=== PATIENT | male | born 1955 | race Caucasian/White ===

== ENCOUNTER → 2022-09-29 11:05 | Outpatient (CLI) | payer OTHER, SELFPAY ==
--- NOTE | ~2022-09-29 | MR_ITS ---
EXAMINATION: MR knee RT wo con DATE: 09/29/2022 12:01 INDICATION: Right knee pain TECHNIQUE: Magnetic resonance imaging (MRI) of the right knee was performed without intravenous contr ast. Sequences included axial PD-weighted FS FSE, coronal PD-weighted FSE and PD-weighted FS FSE, sag ittal PD-weighted FSE, and sagittal T2-weighted FS FSE. COMPARISON: None. FINDINGS: Medial compartment: Vertical tear of the posterior horn of the medial meniscus with mild medial extrusion. Diffuse full-t hickness cartilage loss. Severe osteophytosis. Lateral compartment: Intact meniscus. Mild diffuse cartilage loss. Moderate osteophytosis. Patellofemoral compartment: Full-thickness cartilage loss along the superior aspect of the patella. Moderate osteophytosis. Intac t retinacula. Ligaments and tendons: ACL is chronically torn. PCL, MCL, and LCL are intact. Remaining flexor and extensor tendons are inta ct. Fluid: Moderate volume joint fluid. Small Zhang's cyst. Osseous/other: No suspicious focal or diffuse marrow signal. IMPRESSION: 1. Vertical tear of the posterior horn, medial meniscus, with extrusion. 2. Chronic ACL tear. 3. Tricompartmental osteoarthritis, severe in the medial compartment Reviewed, dictated and finalized at location K. SULFIDE OPERATOR
== END ==
PROVIDERS: PCP Physician Assistant; Visit Provider Physician Assistant
DX: M17.11 Unilateral primary osteoarthritis, right knee (principal); S83.241A Other tear of medial meniscus, current injury, right knee, initial encounter; S83.511A Sprain of anterior cruciate ligament of right knee, initial encounter; X58.XXXA Exposure to other specified factors, initial encounter
CPT/HCPCS: 73721

== ENCOUNTER → 2023-08-31 10:03 | Outpatient (CLI) | payer OTHER, SELFPAY ==
--- NOTE | ~2023-08-31 | XR_ITS ---
EXAMINATION: XR hip LT min 2V INDICATION: Left hip pain, long-term systemic steroid use TECHNIQUE: Two views of the left hip are obtained. COMPARISON: None available FINDINGS: Bone alignment is normal. There is no fracture. There is moderate osteoarthritis of the lef t hip. Phleboliths are noted in the pelvis. IMPRESSION: 1. Mild osteoarthritis of the hip without acute osseous abnormality. Reviewed, dictated and finalized at location F. HEAD MAT ASSEMBLER
== END ==
PROVIDERS: PCP Physician Assistant; Visit Provider Physician Assistant
DX: M06.042 Rheumatoid arthritis without rheumatoid factor, left hand (principal); Z79.52 Long term (current) use of systemic steroids; M16.12 Unilateral primary osteoarthritis, left hip
CPT/HCPCS: 73502

== ENCOUNTER 2024-02-15 14:15 | Emergency (ER) | payer OTHER, SELFPAY ==
[2024-02-15 14:23] VITALS: BP 139/61; PULSE 75; RESP 18; TEMP 36.6; O2SAT 96
--- NOTE | 2024-02-15 15:02 | ED.EAR ---
HPI - Ear Problem General Chief complaint: Ear Stated complaint: Right Earache Time Seen by Provider: 02/15/24 14:54 Source: patient and RN notes reviewed Mode of arrival: ambulatory Limitations: no limitations History of Present Illness HPI Narrative: Patient presents today with a 2 day history of right ear pain that has been worse since last night with decreased hearing. Currently rates his pain 2/10. History of frequent ear infections. Related Data Home Medications Medication Instructions Recorded Confirmed ergocalciferol (vitamin D2) 1,250 02/15/24 mcg (50,000 unit) capsule folic acid 1 mg tablet 02/15/24 lisinopril 20 mg tablet mg 02/15/24 meloxicam 15 mg tablet mg 02/15/24 methotrexate sodium 2.5 mg tablet mg 02/15/24 prednisone 5 mg tablet mg 02/15/24 Allergies Allergy/AdvReac Type Severity Reaction Status Date / Time No Known Allergies Allergy Verified 02/15/24 14:38 Review of Systems Review of Systems: CONSTITUTIONAL: Denies body aches, fever, chills, or sweats. EYES: Denies visual changes, redness, or discharge. ENT: Denies rhinorrhea, congestion, sore throat. + right ear pain CARDIOVASCULAR: Denies chest pain, palpitations, or edema. RESPIRATORY: Denies cough or dyspnea. GASTROINTESTINAL: Denies abdominal pain, nausea, vomiting, or diarrhea. GENITOURINARY: Denies dysuria or hematuria. SKIN: Denies rash, itching, or wounds. MUSCULOSKELETAL: Denies back pain, joint pain, or myalgia. NEUROLOGIC: Denies headache, numbness, tingling, or weakness. PSYCH: Denies depression or anxiety. [facility] Past Medical History Medical History (Updated 02/15/24 @ 15:06 by Kenyatta Walters, [facility], ) COPD (chronic obstructive pulmonary disease) Hypertension Comments At time of signature, I have reviewed and agree with nursing past medical, surgical, social and family history unless otherwise noted. Please see nursing chart for further information. There is no relevant family history pertinent to the presenting complaint Exam Narrative: GENERAL: Well-appearing, well-nourished, and in no acute distress. HEAD: Normocephalic, atraumatic. EYES: EOMI. No redness or drainage. Conjunctivae normal. ENT: Mucous membranes pink and moist. Nares clear. No rhinorrhea. Right middle ear effusion. NECK: Normal AROM. CHEST: No respiratory distress. MUSCULOSKELETAL: No bony tenderness. EXTREMITIES: Normal range of motion. No edema. SKIN: Warm, dry, no rash. Capillary refill normal. Normal skin turgor. NEURO: No focal deficits. Alert and oriented x3. Gait steady. PSYCH: Normal affect. No signs of depression or anxiety. Course Course Level of Care: Express Care Visit Vital Signs Vital signs: Vital Signs Temperature 97.9 F 02/15/24 14:23 Pulse Rate 75 02/15/24 14:23 Respiratory Rate 18 02/15/24 14:23 Blood Pressure 139/61 02/15/24 14:23 Pulse Oximetry 96 02/15/24 14:23 Oxygen Delivery Room Air 02/15/24 14:23 Temperature 97.9 F 02/15/24 14:23 Pulse Rate 75 02/15/24 14:23 Respiratory Rate 18 02/15/24 14:23 Blood Pressure 139/61 02/15/24 14:23 Pulse Oximetry 96 02/15/24 14:23 Oxygen Delivery Room Air 02/15/24 14:23 Reviewed Medical Decision Making MDM Narrative Medical decision making narrative: Patient will be started on short course of cefdinir. Also recommend Flonase and Coricidin HBP. Patient agrees with plan. Anticipatory guidance given. Differential Diagnosis Differential Diagnosis: Otitis media, otitis externa, ruptured TM, serous otitis, cerumen impaction Vital Signs Vital Signs: Vital Signs Temperature 97.9 F 02/15/24 14:23 Pulse Rate 75 02/15/24 14:23 Respiratory Rate 18 02/15/24 14:23 Blood Pressure 139/61 02/15/24 14:23 Pulse Oximetry 96 02/15/24 14:23 Oxygen Delivery Room Air 02/15/24 14:23 Temperature 97.9 F 02/15/24 14:23 Pulse Rate 75 02/15/24 14:23 Respiratory Rate 18 02/15/24 1
== END 2024-02-15 15:14 | disposition home or self-care (01) ==
PROVIDERS: Emergency Provider Nurse Practitioner; PCP Physician Assistant
DX: H65.01 Acute serous otitis media, right ear (principal); J44.9 Chronic obstructive pulmonary disease, unspecified; I10 Essential (primary) hypertension
CPT/HCPCS: 99213; G0463

== ENCOUNTER 2025-05-26 12:32 | Outpatient (CLI) | payer OTHER, SELFPAY ==
--- NOTE | 2025-05-26 13:00 | NEURO_ITS ---
Impression: # Known diabetic complains of increasing numbness of lower extremities. ? 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 EMG exam. Nerve Conduction Studies ?Stim Site NR Peak (ms) P-T Amp (?V) Site1 Site2 Delta-P (ms) Dist (cm) Keegan (m/s) Left Sup Fibular Anti Sensory (Ant Lat Mall)??? NO RESPONSE 14 cm NR 14 cm Ant Lat Mall 16.0 Right Sup Fibular Anti Sensory (Ant Lat Mall) 14 cm ? 3.8 5.7 14 cm Ant Lat Mall 3.8 16.0 42 Left Sural Anti Sensory (Lat Mall)??? NO RESPONSE Calf NR Calf Lat Mall 16.0 Right Sural Anti Sensory (Lat Mall) Calf ? 3.7 6.3 Calf Lat Mall 3.7 16.0 43 ?Stim Site NR Onset (ms) O-P Amp (mV) Site1 Site2 Delta-0 (ms) Dist (cm) Keegan (m/s) Left Peroneal Motor (Vastus Med) Ankle ? 4.3 3.4 Popit Ankle 10.9 40.0 37 Popit ? 15.2 2.4 Right Peroneal Motor (Vastus Med) Ankle ? 4.4 2.3 Popit Ankle 10.1 40.0 40 Popit ? 14.5 2.0 Left Tibial Motor (Abd Barbosa Brev) Ankle ? 5.0 3.8 Knee Ankle 12.0 43.0 36 Knee ? 17.0 1.5 Right Tibial Motor (Abd Barbosa Brev) Ankle ? 4.9 6.2 Knee Ankle 10.9 46.0 42 Knee ? 15.8 2.9 F Wave Studies ?NR F-Lat (ms) L-R F-Lat (ms) Left Peroneal (Mrkrs) (EDB) ? 58.98 0.70 Right Peroneal (Mrkrs) (EDB) ? 58.29 0.70 Left Tibial (Mrkrs) (Abd Hallucis) ? 59.65 0.38 Right Tibial (Mrkrs) (Abd Hallucis) ? 59.28 0.38 Electromyography ?Side Muscle Nerve Root Ins Act Fibs Amp Dur Recrt Comment Right AntTibialis Dp Br Fibular L4-5 Nml Nml Nml >12ms +1 Right Gastroc Tibial S1-2 Nml Nml Nml >12ms +1 Right Fibularis Long Sup Br Fibular L5-S1 Nml Nml Nml >12ms +1 Right Flex Dig Long Tibial L5-S2 Nml Nml Nml >12ms +1 Right Ext Dig Brev Dp Br Fibular L5, S1 Nml Nml Nml >12ms +2 Right QuadratusFem QuadFemoris L4-5, S1 Nml Nml Nml Nml Nml Left AntTibialis Dp Br Fibular L4-5 Nml Nml Nml >12ms +1 Left Gastroc Tibial S1-2 Nml Nml Nml >12ms +1 Left Fibularis Long Sup Br Fibular L5-S1 Nml Nml Nml >12ms +1 Left Flex Dig Long Tibial L5-S2 Nml Nml Nml >12ms +1 Left Ext Dig Brev Dp Br Fibular L5, S1 Nml Nml Nml >12ms +2 Left QuadratusFem QuadFemoris L4-5, S1 Nml Nml Nml Nml Nml
--- OUTSIDE RECORDS SUMMARY | 2025-05-26 13:44 | XMS_ITS | Clinical Summary ---
Author Organization [facility] Address [address] [place] [address] Care Team Providers Care Promotions Executive Name Role Phone Nolberto Allen MD, Dada Robles Primary Care Provider [phone] Allergies Active Allergy Reactions Criticality Noted Date Comments Unclassified Drug Other (See Comments) 09/15/20 21 RA drug caused severe pain Medications lisinopriL (PRINIVIL) 20 mg tablet Take 20 mg by mouth daily. Active folic acid (FOLVITE) 1 mg tablet Take 1 mg by mouth daily. Active predniSONE (DELTASONE) 5 mg tablet Take 10 mg by mouth daily. Active meloxicam (MOBIC) 15 mg tablet Take 15 mg by mouth daily. Active ergocalciferol (VITAMIN D2) 50,000 unit capsule Take 50,000 Units by mouth. Active denosumab (Prolia) 60 mg/mL Syringe Inject 60 mg by subcutaneous injection. Q 6 months Active methotrexate (RHEUMATREX) 2.5 mg Tablet Take 2.5 mg by mouth. Active calcium carbonate/vitam in D3 (CALCIUM 600 + D,3, ORAL) Take by mouth. Activ e cpap medical deviceIndicatio ns:Sleep apnea, unspecified type [facility] for new S10 Auto CPAP @ 5-20 cwp with heated humidifier, climateline tubing; MARÍA ELENA lifetime; please make available on airview 1 Each 10/24/19 22 Active CPAP / BIPAP suppliesIndicat ions:Obstructiv e sleep apnea syndrome [facility] for mask and all related supplies as needed, fit mask to comfort. 1 Each 06/20/20 23 Active Ozempic 0.25 mg or 0.5 mg (2 mg/3 mL) Pen Injector INJECT 0.5 MG SUBCUTANEOUSLY ONE TIME PER WEEK ON SAME DAY OF EACH WEEK 06/23/20 24 Active fluticasone propion-salmete roL (ADVAIR HFA) 230-21 mcg/actuation HFA Aerosol InhalerIndicati ons:Asthma-COPD overlap syndrome (CMS/HCC) Take 2 Puffs by inhalation every 12 hours. 12 Gram 6 09/01/20 24 Active albuterol sulfate HFA 90 mcg/actuation aerosol inhalerIndicati ons:Asthma-COPD overlap syndrome (CMS/HCC) Take 2 Puffs by inhalation every 6 hours as needed for Shortness of Breath. 8.5 Gram 5 09/01/20 24 Active alendronate (FOSAMAX) 70 mg tablet Take 70 mg by mouth every 7 days. 01/30/20 026 Active Active Problems Patient Care Coordination No te Formatting of this note migh t be different from the original. DME:[facility] for CPAP Problem Noted Date Diagnosed Date Postnasal drip 09/01/2024 Chronic cough 07/12/2022 Gastroesophageal reflux disease 07/12/2022 Asthma-COPD overlap syndrome 07/13/2021 Encounter for screening for lung cancer 07/13/20 Cigarette nicotine dependence without complicati on 07/13/2021 CRISTIANE (obstructive sleep apnea) 07/13/2021 Lung nodules 07/13/2021 Tingling Cervical radiculopathy Resolved Problems Problem Noted Date Diagnosed Date Resolved Date Class 1 obesity due to exces s calories without serious comorbidity with body mass index (BMI) of 34.0 to 34.9 in adult 07/13/202106/2024 Encounters Date Type Department Care Team Description 05/11/2025 External Device Data [facility] ABSTRACTION Provider, Abstract 04/07/2025 External Device Data [facility] ABSTRACTION Provider, Abstract 04/06/2025 External Device Data [facility] ABSTRACTION Provider, Abstract 03/09/2025 External Device Data [facility] ABSTRACTION Provider, Abstract 03/02/2025 2:30 PM CDT Office Visit [facility]monology - [facility] [id number] [place] [address] [address] [place] [address] Jazmín Torres NP Asthma-COPD overlap syndrome (CMS/HCC) (Primary Dx); CRISTIANE (obstructive sleep apnea); Chronic cough; Cigarette nicotine dependence without complication; Gastroesophageal reflux disease, unspecified whether esophagitis present from Last 3 Months Family History Medical History Relation Name Comments Breast Cancer Mother COPD Mother Liver Cancer Mother Relation Name Status Comments Father Mother Social History Tobacco Use Types Packs/Day Years Used Date Smoking Tobacco: Every Day Cigarettes 1.5 49 Passive Smoke Exposure: Never Smokeless Tobacco: Never Alcohol Use Standard Drinks/Week Comments Not Currently 0 (1 standard drink = 0.6 oz pur e alcohol) Sex and Gender Information Value Date Recorded Sex Assigned at Not on file Legal Sex Male 11:36 PM CDT Gender Identity Not on file Sexual Orientation Not on file Last Filed Vital Signs Vital Sign Reading Time Taken Comments Blood Pressure 118/72 03/02/2025 2:12 PM CDT Pulse 70 03/02/2025 2:12 PM CDT Temperature 36.6 C (97.9 F) 03/02/2025 2:12 PM CDT Respiratory Rate 16 03/02/2025 2:12 PM CDT Oxygen Saturation 97% 03/02/2025 2:12 PM CDT Inhaled Oxygen Concentration - - Weight 91.3 kg (201 lb 3.2 oz) 03/02/2025 2:12 P M CDT Height 182.9 cm (6') 03/02/2025 2:12 PM CDT Body Mass Index 27.29 03/02/2025 2:12 PM CDT Plan of Treatment Upcoming Encounters Date Type Department Care Team (Late st Contact Info) Description 10/20/2025 10:40 AM SUPERINTENDENT BOARD [employer]ILL Office Visit [facility]ology - [facility] [id number] [address] [place] [id number] [facility] [address] [place] [address] Health Maintenance Due Date Last Done Comments DIABETES ANNUAL FOOT EXAM 12/27/1975 DIABETES ANNUAL RETINAL EXAM 12/27/1975 DIABETES MICROALBUMIN ANNUAL SCREEN 12/27/1975 LDL CHOLESTEROL ANNUAL 12/27/1975 DTAP/TDAP/TD VACCINES (1 - Tdap) 1976 PNEUMOCOCCAL VACCINE 50+ YEA RS (1 of 2 - PCV) 1976 ZOSTER VACCINE (1 of 2) 1976 COLORECTAL SCREENING 2002 Colorectal Cancer Screening 2002 FIT-DNA Q 3 years 2002 FIT/FOBT Q 1 year 2002 Flex Sig/CT Colonography Q 5 years 2002 RSV VACCINE (60+ or ) (1 - Risk 60-74 years 1-dose series) 2017 DIABETES HBA1C Q 6 MONTHS 04/05/20252024, 07/04/2024, 01/03/2024, Additional history exists INFLUENZA VACCINE (#1) 2025 Lung Cancer Screening 10/30/2025 10/30/2024 , 11/01/2023, 06/29/2022 Abdominal Aortic Aneurysm (A AA) Screening Completed 07/22/2024, 10/19/2022 Procedures Procedure Name Priority Date/Time Associated Diagnosis Comments CT LUNG SCREENING (LDCT BASELINE OR ANNUAL) Routine 10/30/2024 9:54 AM SUPERINTENDENT [employer]ARD MILL Cigarette nicotine dependence without complication CT ABDOMEN PELVIS WO CONTRAST Routine 10/19/2022 11:22 AM SUPERINTENDENT BOARD MILL Right sided abdominal pain from Last 3 Months or Most Recently Relevant to Health Maintenance Results * CT LUNG SCREENING (LDCT BASELINE OR ANNUAL) (10/30/2024 9:54 AM SUPERINTENDENT BOARD MILL) Anatomical Region Laterality Modality Chest Computed Tomogra phy 10/30/2024 9:47 AM SUPERINTENDENT BOARD MILL Impressions 11/02/2024 10:22 AM SUPERINTENDENT BOARD MILL IMPRESSION: 1. Lung-RADS Category 2S: Benign. 2. Old granulomatous changes. Mild patchy ground glass opacities in the left lower lobe could be infectious or inflammatory. 3. Aortic and coronary artery calcifications. 4. Thyroid nodules. RECOMMENDATIONS: 1. Continue annual screening with LDCT in 12 months. 2. Follow-up thyroid ultrasound is suggested. DICTATION LOCATION: [address] 11/02/2024 10:[address] LUNG SCREENING (LDCT BASELINE OR ANNUAL) 10/30/2024 9:54 AM INDICATION: Lung cancer screening, >= 74 pack-year smoking history (Age >= 50y). TECHNIQUE: Axial CT images were obtained though the chest without IV contrast using a low-dose technique. Images were also reviewed using CAD software. CTDlvol of 2 mGy and DLP of 78.71 mGy-cm. The examination was performed with the adjustment of mA according to the patient size and/or the use of Iterative reconstruction technique. LIMITATIONS: Low-dose, noncontrast technique limits evaluation of the solid viscera and mediastinum. COMPARISON: CT lung screening 11/01/2023. FINDINGS: LUNGS: Multiple scattered calcified granulomas. There are a few noncalcified pulmonary nodules identified as follows: 1. Left lower lobe on image 460 of series 8 measuring 3 mm, which is felt to be stable. 2. Left lower lobe on image 428 of series 8 measuring 2 mm which might be new from the prior study. 3. Left upper lobe on image 325 averaging 2.5 mm which is probably stable allowing for slice thickness differences between studies. 4. Image 370 within the left lower lobe measuring 3 mm which is felt to be stable. Mild patchy groundglass opacities within the left lower lobe which may be infectious or inflammatory. Mild secretions within the lumen of the trachea and right main bronchus. No acute airspace consolidation. Focus of pleural thickening in the left upper lobe posteriorly appears stable, image 141 of series 8. PLEURA: No pleural effusion or pneumothorax. HEART/VESSELS: Normal heart size. No pericardial effusion. Mild thoracic aortic calcifications without aneurysm. CORONARY ARTERIES: Multivessel coronary artery calcifications. MEDIASTINUM AND JORGE: Calcified mediastinal lymph nodes. No lymphadenopathy within the mediastinum. CHEST WALL AND LOWER NECK: Multiple calcifications scattered throughout the thyroid gland with a thyroid nodule particularly noted in the inferior pole on the left measuring up to 1.4 cm. UPPER ABDOMEN: Upper abdominal images are degraded by beam hardening artifacts from the low dose technique, without obvious acute process. BONES: Multilevel degenerative changes throughout the spine. Several old left rib fractures. Procedure Note Luis Boo, DO - 11/02/2024 CT LUNG SCREENING (LDCT BASELINE OR ANNUAL) 10/30/2024 9:54 AM INDICATION: Lung cancer screening, >= 74 pack-year smoking history (Age >= 50y). TECHNIQUE: Axial CT images were obtained though the chest without IV contrast using a low-dose technique. Images were also reviewed using CAD software. CTDlvol of 2 mGy and DLP of 78.71 mGy-cm. The examination was performed with the adjustment of mA according to the patient size and/or the use of Iterative reconstruction technique. LIMITATIONS: Low-dose, noncontrast technique limits evaluation of the solid viscera and mediastinum. COMPARISON: CT lung screening 11/01/2023. FINDINGS: LUNGS: Multiple scattered calcified granulomas. There are a few noncalcified pulmonary nodules identified as follows: 1. Left lower lobe on image 460 of series 8 measuring 3 mm, which is felt to be stable. 2. Left lower lobe on image 428 of series 8 measuring 2 mm which might be new from the prior study. 3. Left upper lobe on image 325 averaging 2.5 mm which is probably stable allowing for slice thickness differences between studies. 4. Image 370 within the left lower lobe measuring 3 mm which is felt to be stable. Mild patchy groundglass opacities within the left lower lobe which may be infectious or inflammatory. Mild secretions within the lumen of the trachea and right main bronchus. No acute airspace consolidation. Focus of pleural thickening in the left upper lobe posteriorly appears stable, image 141 of series 8. PLEURA: No pleural effusion or pneumothorax. HEART/VESSELS: Normal heart size. No pericardial effusion. Mild thoracic aortic calcifications without aneurysm. CORONARY ARTERIES: Multivessel coronary artery calcifications. MEDIASTINUM AND JORGE: Calcified mediastinal lymph nodes. No lymphadenopathy within the mediastinum. CHEST WALL AND LOWER NECK: Multiple calcifications scattered throughout the thyroid gland with a thyroid nodule particularly noted in the inferior pole on the left measuring up to 1.4 cm. UPPER ABDOMEN: Upper abdominal images are degraded by beam hardening artifacts from the low dose technique, without obvious acute process. BONES: Multilevel degenerative changes throughout the spine. Several old left rib fractures. IMPRESSION: 1. Lung-RADS Category 2S: Benign. 2. Old granulomatous changes. Mild patchy ground glass opacities in the left lower lobe could be infectious or inflammatory. 3. Aortic and coronary artery calcifications. 4. Thyroid nodules. RECOMMENDATIONS: 1. Continue annual screening with LDCT in 12 months. 2. Follow-up thyroid ultrasound is suggested. DICTATION LOCATION: Location [address] [place] [address] [place] Jazmín Torres NP CT ORDERABLES Final Res ult * CT ABDOMEN PELVIS WO CONTRAST (10/19/2022 11:22 AM [employer]END[employer]) Anatomical Region Laterality Modality Abdomen Computed Tomogra phy 10/19/2022 11:2 3 AM [employer]ENDENT [employer] Impressions 10/19/2022 11:41 AM [employer]PER[employer]ENDENT [employer] IMPRESSION: 1. No bowel wall thickening or dilation. Normal appendix. 2. No CT correlate for patient's abdominal pain. 3. Additional findings include simple right renal cyst, atherosclerosis and lumbar spondylosis. DICTATION LOCATION: Location [address] [place] [address] 10/19/2022 11:[address] [address] ABDOMEN AND PELVIS WITHOUT IV CONTRAST DATE: 10/19/2022 11:22 AM HISTORY: Right-sided pain. TECHNIQUE: Transaxial computed tomographic images of the abdomen and pelvis were obtained without administration of intravenous contrast according to standard protocol. The examination was performed with the adjustment of mA according to the patient size and/or the use of Iterative Reconstruction Technique. FINDINGS: The lung bases are clear. The heart size is normal. The liver, gallbladder, pancreas, spleen, and adrenal glands are normal. There is a simple right renal cyst present measuring 1.5 cm. There is no calculus or hydronephrosis. The ureters can be followed to the bladder without obstruction. No bowel wall thickening or dilation present. The appendix is air-filled and normal. Atherosclerosis present aorta. No adenopathy present. The bladder is normal. There is no free fluid. There is mild degenerative change in the lower lumbar spine. Procedure Note Maximo Wing MD - 10/19/2022 CT ABDOMEN AND PELVIS WITHOUT IV CONTRAST DATE: 10/19/2022 11:22 AM HISTORY: Right-sided pain. TECHNIQUE: Transaxial computed tomographic images of the abdomen and pelvis were obtained without administration of intravenous contrast according to standard protocol. The examination was performed with the adjustment of mA according to the patient size and/or the use of Iterative Reconstruction Technique. FINDINGS: The lung bases are clear. The heart size is normal. The liver, gallbladder, pancreas, spleen, and adrenal glands are normal. There is a simple right renal cyst present measuring 1.5 cm. There is no calculus or hydronephrosis. The ureters can be followed to the bladder without obstruction. No bowel wall thickening or dilation present. The appendix is air-filled and normal. Atherosclerosis present aorta. No adenopathy present. The bladder is normal. There is no free fluid. There is mild degenerative change in the lower lumbar spine. IMPRESSION: 1. No bowel wall thickening or dilation. Normal appendix. 2. No CT correlate for patient's abdominal pain. 3. Additional findings include simple right renal cyst, atherosclerosis and lumbar spondylosis. DICTATION LOCATION: Location [address] [place] [address] us Dada Arvizu Jr., MD CT ORDERABLES Final Res ult from Last 3 Months or Most Recently Relevant to Health Maintenance Insurance [facility] MCR Care Teams Promotions Executive Relationship Specialty Start [place] [id number] [address] [facility] [address] [place] [address] PCP - General Family Practice 09/26/18
--- OUTSIDE RECORDS SUMMARY | 2025-05-26 13:44 | XMS_ITS | Clinical Summary ---
Author Organization [facility] Address [address] [place] [address] Care Team Providers Care Benzene Worker Name Role Phone Dada Arvizu MD Primary Care Provider [phone] Allergies Active Allergy Reactions Criticality Noted Date Comments Azathioprine Other (see comment) High 04/29/2020 Reaction: back pain, Clonazepam Hives 09/06/2016 Leflunomide Diarrhea High 04/29/2020 Reaction: diarrhea, Sulfasalazine Hives 06/01/2015 Medications albuterol sulfate HFA 108 (90 Base) MCG/ACT inhaler Inhale 2 puffs into the lungs every 6 (six) hours as needed for Wheezing. 18 g 2 Active denosumab (PROLIA) 60 MG/ML injection Inject 1 mL (60 mg total) into the skin. Active folic acid (FOLVITE) 1 MG tablet Take 1 tablet (1 mg total) by mouth daily. 7 Active TRELEGY ELLIPTA 200-62.5-25 MCG/ACT AEROSOL POWDER, BREATH ACTIVATED Inhale 1 puff into the lungs daily. 4 Active vitamin D2, ergocalciferol, (DRISDOL) 1.25 mg capsule Take 1 capsule (1.25 mg total) by mouth once a week. 4 Active lisinopril (PRINIVIL) 20 MG tablet Take 1 tablet (20 mg total) by mouth daily. Active meloxicam (MOBIC) 15 MG tablet Take 1 tablet (15 mg total) by mouth daily. 7 Active methotrexate (TREXALL) 2.5 MG tablet TAKE 8 TABLETS BY MOUTH ALL AT ONCE WEEKLY 7 Active predniSONE (DELTASONE) 5 mg tablet Take 2 tablets (10 mg total) by mouth daily. 6 Active dicyclomine (BENTYL) 20 MG tablet Take 1 tablet (20 mg total) by mouth every 6 (six) hours. 20 tablet 4 Active HYDROcodone-acetami nophen (NORCO) 5-325 MG tabletIndications:A cute Pain < 7 Day Supply Take 1 tablet by mouth every 6 (six) hours as needed. Indications: Acute Pain < 7 Day Supply 10 tablet 4 Active ondansetron (ZOFRAN-ODT) 4 MG disintegrating tablet Take 1 tablet (4 mg total) by mouth every 8 (eight) hours as needed for Nausea. 20 tablet 4 Active Active Problems Problem Noted Date Diagnosed Date Impacted cerumen of right ear 04/29/2020 Social History Tobacco Use Types Packs/Day Years Used Date Smoking Tobacco: Never Passive Smoke Exposure: Never Smokeless Tobacco: Never Tobacco Cessation:Counseling Given: Not Answered Sex and Gender Information Value Date Recorded Sex Assigned at Not on file Legal Sex Male 8:07 PM CDT Gender Identity Not on file Sexual Orientation Not on file Last Filed Vital Signs Vital Sign Reading Time Taken Comments Blood Pressure 135/73 07/22/2024 2:00 PM CDT Pulse 72 07/22/2024 2:00 PM CDT Temperature 36.3 C (97.4 F) 07/22/2024 2:25 PM CDT Respiratory Rate 19 07/22/2024 2:00 PM CDT Oxygen Saturation 95% 07/22/2024 2:00 PM CDT Inhaled Oxygen Concentration - - Weight 94.1 kg (207 lb 7.3 oz) 07/22/2024 11:53 AM CDT Height 182.9 cm (6') 07/22/2024 11:53 AM CDT Body Mass Index 28.14 07/22/2024 11:53 AM CDT Plan of Treatment Health Maintenance Due Date Last Done Comments Colorectal Cancer Screening Colonoscopy (10 Years) 1955 Hepatitis C 12/27/1975 DTaP, Tdap and Td Vaccines ( 1 - Tdap) 1976 Pneumococcal Vaccine: 50+ Years (1 of 1 - PCV) 12/27/2007 Zoster Vaccines (1 of 2) 12/27/2007 Annual Medicare Wellness Visit 2022 COVID-19 Vaccine (3 - 2024-2 6 season) 2025 08/18/2021, 07/21/2021 RSV Immunization or 60+ Years (1 - 1-dose 75+ series) 2032 Meningococcal B Vaccine Aged Out No l onger eligible based on patient's age to complete this topic Meningococcal Vaccine Aged Out No collette denise eligible based on patient's age to complete this topic RSV Immunizations Under 20 Months Aged Out No longer eligible b ased on patient's age to complete this topic Insurance [employer] Care Teams Benzene Worker Relationship Specialty [place] [address] [place] [id number] PCP - General FAMILY PRACTICE 04/29/20
--- OUTSIDE RECORDS SUMMARY | 2025-05-26 13:45 | XMS_ITS | Clinical Summary ---
Author Organization [facility] [address] Address [address] [place] [address] Phone Care Team Providers [employer] Name Role Phone Nolberto Allen MD, Dada Grajeda Primary Care Provid er Ciara Quinones MD Unavailable [phone] Jesus Ernst MD Unavailable [phone] Allergies Active Allergy Reactions Criticality Noted Date Comments Azathioprine Other (See comments) High Reaction: back pain, Clonazepam Hives Medium 09/06/2016 Leflunomide Diarrhea High Reaction: diarrhea, Sulfasalazine Hives Medium 06/01/2015 Medications luliconazole (LUZU) 1 % cream apply by topical route every day as a thin layer to the affected area(s) plus a 1 inch margin of healthy surrounding skin 0 0 6 Active econazole (ECOZA) 1 % foam apply by topical route every day for 4 weeks to affected area(s) 0 0 6 Active lisinopril (PRINIVIL,ZESTR IL) 20 mg tablet take 1 tablet by oral route every day 0 0 6 Active clotrimazole 1 % cream Apply topically 2 (two) times a day. Active clotrimazole-be tamethasone (LOTRISONE) cream APPLY EXTERNALLY TO THE AFFECTED AREA TWICE DAILY 30 g 8 Active diclofenac sodium (PENNSAID) 20 mg/gram /actuation(2 %) solution in metered-dose pump Apply 40 mg topically 2 (two) times a day. Apply to R knee 112 g 2 8 Active cyclobenzaprine (FLEXERIL) 10 mg tablet Take 10 mg by mouth 3 (three) times a day as needed for muscle spasms Active varenicline (CHANTIX) 0.5 mg tabletIndicatio ns:Smoking Cessation Take 0.5 mg by mouth 2 (two) times a day Take with full glass of water. Active PROAIR HFA 90 mcg/actuation inhaler 0 Active Trelegy Ellipta 200-62.5-25 mcg inhaler 2 Active nystatin 100,000 unit/mL suspension Take 5 mL (500,000 Units total) by mouth 4 (four) times a day Swish and swallow 60 mL 1 2 Active buPROPion SR (ZYBAN) 150 mg 12 hr tablet Take 150 mg by mouth 2 (two) times a day Active pantoprazole DR (PROTONIX) 40 mg EC tablet Take 40 mg by mouth daily 2 Active tocilizumab (ACTEMRA) 200 mg/10 mL (20 mg/mL) solution Infuse into a venous catheter Active meloxicam (MOBIC) 15 mg tablet Take 1 tablet (15 mg total) by mouth daily 90 tablet 1 5 Active alendronate (FOSAMAX) 70 mg tablet Take 1 tablet (70 mg total) by mouth every 7 days Take on an empty stomach. Do not lie down or eat for 1/2 hour after taking. 4 tablet 11 5 01/30/20 26 Active ergocalciferol (VITAMIN D) 50,000 unit capsule TAKE 1 CAPSULE BY MOUTH ONE TIME PER WEEK 12 capsule 5 Active predniSONE (DELTASONE) 5 mg tablet TAKE 2 TABLETS BY MOUTH EVERY DAY 60 tablet 1 5 Active folic acid (FOLVITE) 1 mg tabletIndicatio ns:Rheumatoid arthritis involving both hands with negative rheumatoid factor (HCC) TAKE 1 TABLET BY MOUTH EVERY DAY 90 tablet 1 5 Active methotrexate 2.5 mg tabletIndicatio ns:Rheumatoid Arthritis TAKE 8 TABLETS BY MOUTH ALL AT ONCE WEEKLY 96 tablet 5 Active Active Problems Problem Noted Date Diagnosed Date DM2 (diabetes mellitus, type 2) 01/29/2025 Neuropathy involving both lower extremities 05/2025 Assessment & Plan (01/29/2025 3:12 PM CDT): As developed neuropathic pains in the bilateral legs/feet intermittently over the past several months. Has had poorly controlled diabetes, so I do have concerns for diabetic peripheral neuropathy. He does have a history of lower back pain, which may contribute, as well. Denies any lower back pain at present. Will check bilateral lower extremity EMG/NCV. Will check hemoglobin A1c today. longterm systemic steroid user 07/26/2023 Assessment & Plan (07/26/2023 12:28 PM CDT): Given long-term steroid requirements and left hip pain, will obtain left hip x- ray to ensure no AVN. Lower abdominal pain 06/15/2022 Assessment & Plan (06/15/2022 4:06 PM CDT): Has some discomfort over the abdomen, which is much improved over the past few days and attributed to his significant cough from COVID. Minimal tenderness without guarding over the right upper/lower quadrant, although discomfort seems more superficial. Suspect more likely a muscle strain. He has been advised to go to the ER if symptoms worsen Thrush 06/15/2022 Assessment & Plan (07/30/2022 10:55 AM AIRPLANE PATROL PILOT): Previous thrush symptoms have resolved with nystatin swish and swallow Assessment & Plan (06/15/2022 4:07 PM CDT): Will prescribe nystatin swish and swallow. He is to notify us if symptoms persist. Muscle pain 10/14/2020 Assessment & Plan (10/14/2020 5:28 PM AIRPLANE PATROL PILOT): Suspect muscle complaints may be secondary to cramping, which may be exacerbated from his steroid use. Will check muscle enzymes today. Numbness and tingling in right hand 09/09/2020 Assessment & Plan (01/13/2021 5:07 PM CDT): Notes occasional numbness and tingling of the right hand 1-2 digits. Recent EMG 12/2020 was unrevealing Assessment & Plan (10/14/2020 5:29 PM AIRPLANE PATROL PILOT): Numbness and tingling in the R hand, 1-2 digits primarily. EMG ordered at last visit is still pending. Assessment & Plan (09/09/2020 2:52 PM AIRPLANE PATROL PILOT): Numbness and tingling in the R hand, 1-2 digits primarily. Will obtain EMG. Osteoarthritis of carpometac arpal (CMC) joint of right thumb 09/09/2020 Assessment & Plan (09/09/2020 4:50 PM AIRPLANE PATROL PILOT): Significant pain in the right CMC joint suspicious for osteoarthritis. Discussed right CMC injection. Will consider if symptoms persist at next visit. Dark stools 03/04/2020 Assessment & Plan (03/04/2020 3:44 PM CDT): Denies hematochezia, melena. Recommended discussing further with PCP. Ensure UTD on colonoscopy. Chronic right shoulder pain 01/22/2020 Assessment & Plan (01/22/2020 3:57 PM CDT): Pain with R shoulder abduction. Suspect rotator cuff etiology. Will refer to PT. Consider MRI/xray if persists. Pain of right hip joint 01/22/2020 Assessment & Plan (01/22/2020 3:56 PM CDT): Pain in the R hip/lower back, which is exacerbated with resisted hip flexion. Will refer to PT. If no improvement, obtain x-ray/MRI for further evaluation. Chronic right-sided low back pain 01/22/2020 Assessment & Plan (01/22/2020 3:57 PM CDT): Send to PT. Consider imaging for further evaluation if persists. Abnormal urinalysis 01/16/2019 Assessment & Plan (03/06/2019 4:15 PM CDT): No blood seen on most recent UA 02/2019 Assessment & Plan (01/16/2019 4:37 PM CDT): Trace blood on UA in ER. Will recheck today Right knee pain 04/09/2018 Overview (05/08/2018): Saw ortho since last visit. Discussed need for TKA due to OA. Ordered MRI at last visit. Assessment & Plan (10/26/2022 11:21 AM AIRPLANE PATROL PILOT): Has chronic right knee pain and swelling with history of full-thickness right medial posterior meniscal tear on prior MRI. Has previously been to physical therapy. Knee orthopedics has recommended TKA, which he has deferred to this point. Recommended follow-up with knee orthopedics, if symptoms persist. Assessment & Plan (07/30/2022 10:55 AM AIRPLANE PATROL PILOT): Has chronic right knee pain and swelling with history of full-thickness right medial posterior meniscal tear on prior MRI. Another medical provider had recommended a right knee intra-articular Monovisc injection. With that said, they had advised him that he must obtain a repeated knee MRI prior to this. Has previously been to physical therapy. Otherwise, will continue Pennsaid applied to the affected knees and hands up to 2 times daily p.r.n.. Given order for repeat the MRI at prior visit. Has yet to schedule although anticipates doing so, which was discussed again today. Assessment & Plan (06/15/2022 4:04 PM CDT): Has chronic right knee pain and swelling with history of full-thickness right medial posterior meniscal tear on prior MRI. Another medical provider had recommended a right knee intra-articular Monovisc injection. With that said, they had advised him that he must obtain a repeated knee MRI prior to this. Has previously been to physical therapy. Otherwise, will continue Pennsaid applied to the affected knees and hands up to 2 times daily p.r.n.. Given order for repeat the MRI at prior visit. Has yet to schedule although anticipates doing so. Assessment & Plan (03/16/2022 3:00 PM CDT): Has chronic right knee pain and swelling with history of full-thickness right medial posterior meniscal tear on prior MRI. Another medical provider had recommended a right knee intra-articular Monovisc injection. With that said, they had advised him that he must obtain a repeated knee MRI prior to this. Has previously been to physical therapy. Otherwise, will continue Pennsaid applied to the affected knees and hands up to 2 times daily p.r.n.. Given order for repeat the MRI at last visit, did not proceed with as symptoms resolved with Kenalog IM injection. Could reconsider MRI if symptoms recur. Assessment & Plan (02/16/2022 4:17 PM CDT): Has chronic right knee pain and swelling with history of full-thickness right medial posterior meniscal tear on prior MRI. Another medical provider had recommended a right knee intra-articular Monovisc injection. With that said, they had advised him that he must obtain a repeated knee MRI prior to this. Has previously been to physical therapy. Will obtain updated knee MRI. Otherwise, will continue Pennsaid applied to the affected knees and hands up to 2 times daily p.r.n.. Assessment & Plan (01/16/2019 4:36 PM CDT): Full-thickness right medial posterior meniscal tear on the prior MRI. Likely a combination of meniscal tear along with RA contributing to his symptoms. Patient has deferred surgical intervention in the past. Will continue Pennsaid applied to the affected joints of the knees and hands 2 times daily p.r.n.. Assessment & Plan (12/19/2018 4:25 PM CDT): Full-thickness right medial posterior meniscal tear on prior MRI. Likely a combination of meniscal tear along with RA contributing to his symptoms. Defers surgical intervention at this time. Continue Pennsaid applied to the affected joints of the knees and hands 2 times daily p.r.n.. Assessment & Plan (09/12/2018 3:37 PM AIRPLANE PATROL PILOT): Right knee pain continues to be patient's biggest complaint. Had recent MRI which displayed full-thickness tear of his right medial posterior meniscus. Patient will be seeing orthopedics in the near future. Continue pennsaid applied to the affected joints of the knees and hands 2 times daily prn. Assessment & Plan (07/11/2018 4:25 PM CDT): Right knee pain continues to be patient's biggest complaint. Had recent MRI which displayed full-thickness tear of his right medial posterior meniscus. Patient was advised to hold methotrexate and Humira at least 2 weeks prior to surgery, as well as 2-4 weeks post surgery until stitches out and fully healed. Patient also given Pennsaid samples to be applied to the affected joints of the right knee up to 2 times daily p.r.n.. Discussed potential side effects. Will send in prescription at this time. Osteoporosis 04/09/2018 Overview (11/15/2020): Osteopenia: frax 16, 4.4 DEXA 11/11/2020: L-spine:-1.1, left femoral neck:-2.8, right femoral neck: -2.7 left total femur: -2.6 right total femur: -2.4 FRAX: 19.8/9.3 Assessment & Plan (01/29/2025 3:11 PM CDT): DEXA 11/11/2020: L-spine:-1.1, left femoral neck:-2.8, right femoral neck: -2.7 left total femur: -2.6 right total femur: -2.4 FRAX: 19.8/9.3 Previously on Actonel. Remains on vitamin-D 87525 units weekly in combination with calcium 600 mg b.i.d.. Last vitamin-D 07/2024 was 75. Last prolia 08/2024.. Defers continuing with prolia due to high out of pocket costs. Will obtain repeat dexa and check vitamin d levels today. Will begin fosamax 70 mg po weekly. Instructions on Fosamax use and side effects - particularly esophageal adverse events - are carefully reviewed with him. This drug must be taken upon arising for the day on an empty stomach, with a large 6-8 ounce glass of water; he must remain NPO in the upright position for at least 30 minutes afterwards and until after the first food of the day. If esophageal irritation is noted, he will stop the drug and call my office. Assessment & Plan (11/26/2024 3:22 PM AIRPLANE PATROL PILOT): DEXA 11/11/2020: L-spine:-1.1, left femoral neck:-2.8, right femoral neck: -2.7 left total femur: -2.6 right total femur: -2.4 FRAX: 19.8/9.3 Previously on Actonel. Remains on vitamin-D 25142 units weekly in combination with calcium 600 mg b.i.d.. Last vitamin-D 07/2024 was 75. Received Prolia in the office today. Consider repeat DEXA at next visit. He would like to defer Prolia injections in the future due to high [id number] cost. Will consider alternative treatment options at next visit, such as Fosamax. Assessment & Plan (08/28/2024 3:16 PM AIRPLANE PATROL PILOT): DEXA 11/11/2020: L-spine:-1.1, left femoral neck:-2.8, right femoral neck: -2.7 left total femur: -2.6 right total femur: -2.4 FRAX: 19.8/9.3 Previously on Actonel. Remains on vitamin-D 28394 units weekly in combination with calcium 600 mg b.i.d.. Last vitamin-D 07/2024 was 75. Received Prolia in the office today. Consider repeat DEXA at next visit. Assessment & Plan (06/04/2024 2:42 PM CDT): DEXA 11/11/2020: L-spine:-1.1, left femoral neck:-2.8, right femoral neck: -2.7 left total femur: -2.6 right total femur: -2.4 FRAX: 19.8/9.3 Previously on Actonel. Remains on vitamin-D 00718 units weekly in combination with calcium 600 mg b.i.d.. Last vitamin D3/03/2024 was 71. Last Prolia 05/03/2023. Missed last Prolia dose due to back abscess, which is now resolved. Remains several months overdue for infusion. Assessment & Plan (02/28/2024 2:56 PM CDT): DEXA 11/11/2020: L-spine:-1.1, left femoral neck:-2.8, right femoral neck: -2.7 left total femur: -2.6 right total femur: -2.4 FRAX: 19.8/9.3 Previously on Actonel. Remains on vitamin-D 16222 units weekly in combination with calcium 600 mg b.i.d.. Last vitamin D3/03/2024 was 71. Last Prolia 05/03/2023. Missed last Prolia dose due to back abscess, which is now resolved. Will schedule next prolia. Assessment & Plan (11/15/2023 2:43 PM AIRPLANE PATROL PILOT): DEXA 11/11/2020: L-spine:-1.1, left femoral neck:-2.8, right femoral neck: -2.7 left total femur: -2.6 right total femur: -2.4 FRAX: 19.8/9.3 Previously on Actonel. Remains on vitamin-D 81243 units weekly in combination with calcium 600 mg b.i.d.. Vitamin-D 04/12/2023 55. Last Prolia 05/03/2023 Assessment & Plan (07/26/2023 12:28 PM CDT): DEXA 11/11/2020: L-spine:-1.1, left femoral neck:-2.8, right femoral neck: -2.7 left total femur: -2.6 right total femur: -2.4 FRAX: 19.8/9.3 Previously on Actonel. Remains on vitamin-D 07814 units weekly in combination with calcium 600 mg b.i.d.. Vitamin-D 04/12/2023 55. Last Prolia 05/03/2023 Assessment & Plan (04/19/2023 9:57 AM CDT): DEXA 11/11/2020: L-spine:-1.1, left femoral neck:-2.8, right femoral neck: -2.7 left total femur: -2.6 right total femur: -2.4 FRAX: 19.8/9.3 Previously on Actonel. Remains on vitamin-D 23117 units weekly in combination with calcium 600 mg b.i.d.. Vitamin-D 04/12/2023 55. Last Prolia 10/05/2022 Assessment & Plan (03/01/2023 11:00 AM CDT): DEXA 11/11/2020: L-spine:-1.1, left femoral neck:-2.8, right femoral neck: -2.7 left total femur: -2.6 right total femur: -2.4 FRAX: 19.8/9.3 Previously on Actonel. Remains on vitamin-D 35571 units weekly in combination with calcium 600 mg b.i.d.. Last vitamin-D 08/2022 was 50. Last Prolia 10/05/2022. Will recheck vitamin-D and schedule next Prolia. Assessment & Plan (11/30/2022 12:32 PM AIRPLANE PATROL PILOT): DEXA 11/11/2020: L-spine:-1.1, left femoral neck:-2.8, right femoral neck: -2.7 left total femur: -2.6 right total femur: -2.4 FRAX: 19.8/9.3 Previously on Actonel. Remains on vitamin-D 00672 units weekly in combination with calcium 600 mg b.i.d.. Last vitamin-D 08/2022 was 50. Last Prolia 10/05/2022. Assessment & Plan (10/26/2022 10:14 AM AIRPLANE PATROL PILOT): DEXA 11/11/2020: L-spine:-1.1, left femoral neck:-2.8, right femoral neck: -2.7 left total femur: -2.6 right total femur: -2.4 FRAX: 19.8/9.3 Previously on Actonel. Remains on vitamin-D 63995 units weekly in combination with calcium 600 mg b.i.d.. Last vitamin-D 08/2022 was 50. Last Prolia 10/05/2022. Assessment & Plan (07/30/2022 10:55 AM AIRPLANE PATROL PILOT): DEXA 11/11/2020: L-spine:-1.1, left femoral neck:-2.8, right femoral neck: -2.7 left total femur: -2.6 right total femur: -2.4 FRAX: 19.8/9.3 Previously on Actonel. Remains on vitamin-D 33264 units weekly in combination with calcium 600 mg b.i.d.. Last vitamin-D 02/2022 was 48. Last Prolia 03/16/2022. Due for prolia next month, will recheck vit d. Assessment & Plan (06/15/2022 3:48 PM CDT): DEXA 11/11/2020: L-spine:-1.1, left femoral neck:-2.8, right femoral neck: -2.7 left total femur: -2.6 right total femur: -2.4 FRAX: 19.8/9.3 Previously on Actonel. Remains on vitamin-D 41952 units weekly in combination with calcium 600 mg b.i.d.. Last vitamin-D 02/2022 was 48. Last Prolia 03/16/2022 Assessment & Plan (03/16/2022 2:59 PM CDT): DEXA 11/11/2020: L-spine:-1.1, left femoral neck:-2.8, right femoral neck: -2.7 left total femur: -2.6 right total femur: -2.4 FRAX: 19.8/9.3 Previously on Actonel. Remains on vitamin-D 59431 units weekly in combination with calcium 600 mg b.i.d.. Last vit d 02/2022 was 48. [place] prolia 08/2021. Scheduled for prolia after appt today. Assessment & Plan (02/16/2022 4:14 PM CDT): DEXA 11/11/2020: L-spine:-1.1, left femoral neck:-2.8, right femoral neck: -2.7 left total femur: -2.6 right total femur: -2.4 FRAX: 19.8/9.3 Previously on Actonel. Remains on vitamin-D 68759 units weekly in combination with calcium 600 mg b.i.d.. [place] prolia 08/2021. Will recheck vitamin-D and schedule next Prolia. Assessment & Plan (11/10/2021 2:42 PM AIRPLANE PATROL PILOT): DEXA 11/11/2020: L-spine:-1.1, left femoral neck:-2.8, right femoral neck: -2.7 left total femur: -2.6 right total femur: -2.4 FRAX: 19.8/9.3 Previously on Actonel. Remains on vitamin-D 25220 units weekly in combination with calcium 600 mg b.i.d.. [place] prolia 08/2021 Assessment & Plan (09/29/2021 3:15 PM AIRPLANE PATROL PILOT): DEXA 11/11/2020: L-spine:-1.1, left femoral neck:-2.8, right femoral neck: -2.7 left total femur: -2.6 right total femur: -2.4 FRAX: 19.8/9.3 Previously on Actonel. Remains on vitamin-D 52315 units weekly in combination with calcium 600 mg b.i.d.. [place] prolia 08/2021 Assessment & Plan (06/23/2021 3:06 PM CDT): DEXA 11/11/2020: L-spine:-1.1, left femoral neck:-2.8, right femoral neck: -2.7 left total femur: -2.6 right total femur: -2.4 FRAX: 19.8/9.3 Most recent labs 01/2021: Vitamin-D 61 Previously on Actonel. Remains on vitamin-D 80236 units weekly in combination with calcium 600 mg b.i.d.. [place] prolia 02/24/2021 Assessment & Plan (05/19/2021 1:45 PM CDT): DEXA 11/11/2020: L-spine:-1.1, left femoral neck:-2.8, right femoral neck: -2.7 left total femur: -2.6 right total femur: -2.4 FRAX: 19.8/9.3 Most recent labs 01/2021: Vitamin-D 61 Previously on Actonel. Remains on vitamin-D 06614 units weekly in combination with calcium 600 mg b.i.d.. [place] prolia 02/24/2021 Assessment & Plan (02/16/2021 1:51 PM CDT): DEXA 11/11/2020: L-spine:-1.1, left femoral neck:-2.8, right femoral neck: -2.7 left total femur: -2.6 right total femur: -2.4 FRAX: 19.8/9.3 Most recent labs 01/2021: Vitamin-D 61 Previously on Actonel. Remains on vitamin-D 82163 units weekly in combination with calcium 600 mg b.i.d.. Proceed with approval for Prolia Q 6 month subcutaneous injections. Discussed potential side effects. Assessment & Plan (01/13/2021 5:04 PM CDT): DEXA 11/11/2020: L-spine:-1.1, left femoral neck:-2.8, right femoral neck: -2.7 left total femur: -2.6 right total femur: -2.4 FRAX: 19.8/9.3 Most recent labs 09/2020: Vitamin-D 11 He was started on vitamin-D 94996 units weekly in combination with calcium 600 mg b.i.d.. Given his osteoporosis, will stop Actonel at this time and begin approval for Prolia Q 6 months injections. Discussed potential side effects of the medication including but not limited to infections, jaw osteonecrosis. Assessment & Plan (10/14/2020 5:30 PM AIRPLANE PATROL PILOT): Osteopenia on DXA 03/2018, as well as on long-term steroids. Will continue Actonel 150 mg Q 30 days. Recommended vit d 2000 international units today. Will check vitamin d level. Dexa still pending. Assessment & Plan (09/09/2020 2:53 PM AIRPLANE PATROL PILOT): Osteopenia on DXA 03/2018, as well as on long-term steroids. Will continue Actonel 150 mg Q 30 days. Continue calcium and vitamin-D supplementation. Given new orders to recheck DEXA Assessment & Plan (07/15/2020 3:31 PM CDT): Osteopenia on DXA 03/2018, as well as on long-term steroids. Will continue Actonel 150 mg Q 30 days. Recheck in 2 years. Continue calcium and vitamin-D supplementation. Recheck dexa at next visit. Assessment & Plan (06/03/2020 3:27 PM CDT): Osteopenia on DXA 03/2018, as well as on long-term steroids. Will continue Actonel 150 mg Q 30 days. Recheck in 2 years. Continue calcium and vitamin-D supplementation. Recheck dexa at next visit. Assessment & Plan (03/04/2020 3:42 PM CDT): Osteopenia on DXA 03/2018, as well as on long-term steroids. Will continue Actonel 150 mg Q 30 days. Recheck in 2 years. Continue calcium and vitamin-D supplementation. Assessment & Plan (01/22/2020 3:55 PM CDT): Osteopenia on DXA 03/2018, as well as on long-term steroids. Will continue Actonel 150 mg Q 30 days. Recheck in 2 years. Continue calcium and vitamin-D supplementation. Assessment & Plan (11/06/2019 3:32 PM AIRPLANE PATROL PILOT): Osteopenia on DXA 03/2018, as well as on long-term steroids. Will continue Actonel 150 mg Q 30 days. Recheck in 2 years. Continue calcium and vitamin-D supplementation. Assessment & Plan (08/07/2019 3:18 PM AIRPLANE PATROL PILOT): Osteopenia on DXA 03/2018, as well as on long-term steroids. Will continue Actonel 150 mg Q 30 days. Recheck in 2 years. Continue calcium and vitamin-D supplementation. Assessment & Plan (06/26/2019 4:06 PM CDT): Osteopenia on DXA 03/2018, as well as on long-term steroids. Will continue Actonel 150 mg Q 30 days. Recheck in 2 years. Continue calcium and vitamin-D supplementation. Assessment & Plan (05/01/2019 4:51 PM CDT): Osteopenia on DXA 03/2018, as well as on long-term steroids. Will continue Actonel 150 mg Q 30 days. Recheck in 2 years. Continue calcium and vitamin-D supplementation. Assessment & Plan (03/06/2019 4:14 PM CDT): Osteopenia on DXA 03/2018, as well as on long-term steroids. Will continue Actonel 150 mg Q 30 days. Recheck in 2 years. Continue calcium and vitamin-D supplementation. Assessment & Plan (01/16/2019 4:35 PM CDT): Osteopenia on DXA 03/2018, as well as on long-term steroids. Will continue Actonel 150 mg Q 30 days. Recheck in 2 years. Continue calcium and vitamin-D supplementation. Assessment & Plan (12/19/2018 4:24 PM CDT): Osteopenia on DXA 03/2018, as well as on long-term steroids. Will continue Actonel 150 mg Q 30 days. Recheck in 2 years. Continue calcium and vitamin-D supplementation. Assessment & Plan (09/12/2018 3:37 PM AIRPLANE PATROL PILOT): Osteopenia on recent DEXA scan 03/2018, as well as on long-term steroids. On Actonel 150 mg q 30 days. will recheck in 2 years. Assessment & Plan (07/11/2018 4:26 PM CDT): Osteopenia on recent DEXA scan 03/2018, as well as on long-term steroids. On Actonel 150 mg q.d. 30 days. will recheck in 2 years. Assessment & Plan (05/09/2018 3:09 PM CDT): Osteopenia on recent DEXA scan. FRAX score of major osteoporotic fracture 16 with hip fracture 4.4. Will continue with Fosamax Q 7 days. Given handout discussing the medication further. Discussed potential side effects of medication with patient. Assessment & Plan (04/09/2018 6:09 PM CDT): Begin fosamax 70 mg weekly. Discussed the potential side effects of the medication including but not limited to rash, avascular necrosis, and/or GI upset. 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 Dermatitis 10/21/2017 Assessment & Plan (11/26/2017 4:[address] AIRPLANE PATROL PILOT): Had some rashes present before he started humira that were cultured and diagnosed as fungal. His current rash did not improve with holding humira and in fact has worsened. F/u with derm. 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 Questioning a possible psoriatic rash vs tinea versicolor. Will refill the clotrimazole-betamethasone today but will hold this next month's of humira injections to see if it will go away. F/u 1 month. If better with holding injections, can retry humira again to see if it returns as that is how we can tell if it is related to the humira. Pain in both knees 06/14/2017 Overview (10/02/2022): Mild OA on xrays Labs 09/29/2022: ALT 52, total protein 6.3 borderline low, but otherwise normal right knee R knee MRI 09/29/2022: Vertical tear of the posterior horn, medial meniscus, with extrusion. Chronic ACL tear. 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 Chronic ACL tear. 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 He continues to defer surgical intervention. Notes chronic pain in the bilateral knees worsened with use. More likely degenerative arthritis. Continues to defer PT. Defers follow up with Orthopedics. Assessment & Plan (11/26/2024 3:22 PM AIRPLANE PATROL PILOT): Mild OA on xrays Labs 09/29/2022: ALT 52, total protein 6.3 borderline low, but otherwise normal right knee R knee MRI 09/29/2022: Vertical tear of the posterior horn, medial meniscus, with extrusion. Chronic ACL tear. 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 He continues to defer surgical intervention. Notes chronic pain in the bilateral knees worsened with use. More likely degenerative arthritis. Defers PT at this time. Defers follow up with Orthopedics. Assessment & Plan (08/28/2024 3:16 PM AIRPLANE PATROL PILOT): Mild OA on xrays Labs 09/29/2022: ALT 52, total protein 6.3 borderline low, but otherwise normal right knee R knee MRI 09/29/2022: Vertical tear of the posterior horn, medial meniscus, with extrusion. Chronic ACL tear. 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 He continues to defer surgical intervention. Notes chronic pain in the bilateral knees worsened with use. More likely degenerative arthritis, which was discussed today. Will obtain imaging. Defers PT at this time. Defers follow up with Orthopedics. Assessment & Plan (06/04/2024 2:42 PM CDT): Mild OA on xrays Labs 09/29/2022: ALT 52, total protein 6.3 borderline low, but otherwise normal right knee R knee MRI 09/29/2022: Vertical tear of the posterior horn, medial meniscus, with extrusion. Chronic ACL tear. 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 He deferred at that time. Notes chronic pain in the bilateral knees worsened with use. More likely degenerative arthritis, which was discussed today. Will obtain imaging. Defers PT at this time. Defers follow up with Orthopedics. Assessment & Plan (05/09/2018 3:08 PM CDT): Patient notes much improvement since last visit. Continues to have significant pain in the right knee, although notes that is much more tolerable. Has seen Orthopedics since last visit, which is noted to have significant osteoarthritis requiring surgical intervention. Patient defers this at this time and would like right knee MRI for further evaluation 1st. The patient has received order for right knee MRI and will be scheduling this in the next day or so. Assessment & Plan (04/04/2018 4:52 PM CDT): Continues to be patients biggest complaint. Primarily affecting his right knee. Mild OA seen on recent XR, 11/2017. Denies any improvement with cortisone injection given by orthopedics at last visit, but did not a lot of fluid in the joint at that time, per patient report. Denies having any MRIs performed. Depending on orthopedics evaluation and treatment, may benefit from US guided fluid removal and examination at next visit. Also, may need an MRI. Assessment & Plan (02/28/2018 5:17 PM CDT): Biggest complaint today. Mild OA seen on prior XR. Notes that he was unable to walk about a week ago. Had cortisone shot in the right knee yesterday and minimal relief at this point, although not expected for another couple days. Unsure if pain is due to OA vs. RA at this time. Will allow cortisone shot more time to work. Assessment & Plan (11/26/2017 3:33 PM AIRPLANE PATROL PILOT): Mild oa seen on xrays. Better with steroid injections. Assessment & Plan (10/21/2017 3:32 PM AIRPLANE PATROL PILOT): Mild oa seen on xrays. Better with steroid injections. Assessment & Plan (06/14/2017 3:00 PM CDT): On meloxicam. Most likely Oa, but will check xrays today. Rheumatoid arthritis involvi ng both hands with negative rheumatoid factor 04/26/2017 Overview (10/19/2024): C-spine x-ray 10/17/2024: Degenerative anterolisthesis at C3-C4 measuring 1-2 mm. Advanced multilevel facet and uncinate hypertrophy. Carotid atherosclerosis Bilateral knee x-ray 10/17/2024: Severe degenerative changes detected. Near complete obliteration of the medial tibiofemoral joint space bilaterally. Narrowing of the lateral tibiofemoral joint space bilaterally. Ossification of the insertion of the quadriceps tendon. Innumerable extra-articular well corticated 40 fragments detected within the posterior soft tissues of the left knee, likely degenerative. Left suprapatellar effusion. Hip x-ray right 10/17/2024: Degenerative changes. Superior lateral sclerosis of the femoral acetabular joint space Left hip x-ray 10/17/2024: Nonspecific soft tissue mineralization adjacent to the proximal femoral shaft. left hip and SI joint space is preserved On MTX 20, prednisone 10 mg QD, meloxicam 15 mg q.d. Failed oxaprozin, failed humira (not beneficial although symptoms much worsened off medication), failed xeljanz (no benefit, back pain?), failed cimzia Consistent inflammation but patient defers other treatment options. Left hip x-ray 08/31/2023: Moderate left OA. Phleboliths noted in the pelvis Chest ct: stable noncalcified granuloma (09/2018). Recheck in two years. Recent dx of copd (current smoker). Likely avoid orencia. Assessment & Plan (01/29/2025 3:07 PM CDT): CDAI 13. At last visit, we did discuss additional treatment with Actemra. He continues to defer additional treatment options, including biologics, due to concerns for side effects. We have extensively discussed long-term side effects prednisone, which are far more significant than any biologic medication. He is aware of these risks. Does have some chronic residual pain and stiffness throughout the joints of the hands/wrists predominantly. Scattered swollen and tender joints, as above. At present, will need to continue methotrexate 20 mg p.o. weekly with FA 1 mg daily, meloxicam 15 mg daily, and prednisone 10 mg daily. Routine labs today. Follow-up 3 months. Sooner if needed. Assessment & Plan (11/26/2024 3:21 PM AIRPLANE PATROL PILOT): CDAI 33. RA remains poorly controlled. Again, discussed additional treatment with Actemra Q 2 weeks subcutaneous injections, which is now willing to consider. Patient advised of the side effects of the medication, including but not limited to increase risk of infection, increased LFTs, blood count abnormalities, as well as increased cholesterol. Given handout discussing medication further. Will check benefits. Otherwise, will continue methotrexate 20 mg p.o. weekly with FA 1 mg daily, meloxicam 15 mg daily, and prednisone 10 mg daily. Routine labs today. Follow-up 2 months. Sooner if needed. Assessment & Plan (08/28/2024 3:15 PM AIRPLANE PATROL PILOT): CDAI 25. Primary complaint continues to involve chronic discomfort in the bilateral knees and left hip. Has not obtain imaging of the hips and knees that was ordered at last visit. Denies any inflammatory symptoms affecting the knees/hips. Otherwise, does continue to have chronic pain in the bilateral hands with difficulty making a fist. Scattered swollen and tender joints, as above. We did again discuss additional treatment options, including Actemra injections. He continues to defer additional treatments. We have continued to extensively discussed the risks of long-term prednisone use. Have discussed that these biologics like Actemra would ideally allow us to become off prednisone. Nonetheless, given his persistent joint complaints, continue with current treatment regimen and continue methotrexate 20 mg p.o. weekly, FA 1 mg daily, meloxicam 15 mg daily, prednisone 10 mg daily. Routine labs today. Proceed with x-rays, is willing to ensure no evidence for hip AVN. Routine labs today. Follow-up 3 months. Sooner if needed. Assessment & Plan (06/04/2024 2:41 PM CDT): CDAI 23. Primary complaints since last visit has been increased pain affecting the knees, hips, and neck with noninflammatory symptoms. 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 Has scattered tender and swollen joints, as above. Have again discussed additional treatment with Actemra injections. He continues to defer additional treatment options. Given handout discussing medication further. Otherwise, will continue methotrexate 20 mg p.o. weekly with FA 1 mg daily, meloxicam 15 mg daily and prednisone 10 mg daily. Have extensively discussed the risks of long-term prednisone use. Given knee and hip complaints, will obtain imaging of both hips and knees-ensure no evidence for hip AVN. Routine labs today. Follow-up 3 months. Sooner if needed. Assessment & Plan (02/28/2024 2:51 PM CDT): CDAI 21. Overall, Regina notes symptoms have remained fairly stable since last visit. He does continue to experience scattered migratory joint pain, stiffness, and swelling in the hands/wrists predominantly with inflammatory symptoms. Denies any worsened symptoms since stopping Rinvoq and has required Kenalog IM injections much less frequently. Last Kenalog IM injection was >10 months ago. Given persistent high moderate CDAI, have discussed additional treatment options, including Actemra injections. He continues to defer at this time. Could reconsider, if symptoms persist or worsen. Otherwise, will continue methotrexate 20 mg p.o. weekly with FA 1 mg daily, meloxicam 15 mg daily, and prednisone 10 mg daily. Routine labs today. Follow-up 3 months. Sooner if needed. Assessment & Plan (11/15/2023 2:41 PM AIRPLANE PATROL PILOT): CDAI 14. After last visit, Regina discontinued Rinvoq was approved for Actemra IV infusions. He has not begun the infusion due to transportation issues, although he did speak with his insurance and was approved for 12 office visit transports per year. With that said, since stopping Rinvoq, has denied significant change in joint symptoms. Overall, joints are doing fairly well with some intermittent chronic discomfort, stiffness, and swelling predominantly in the hands/wrists along with shoulders and knees. A.m. stiffness for 60 minutes. Does have some active synovitis on exam. Given his chronic steroid requirements, did rediscuss Actemra infusions. He would like to defer at this time. Can reconsider, symptoms persist or worsen. Otherwise, will continue methotrexate 20 mg p.o. weekly with FA 1 mg daily, meloxicam 15 mg daily, prednisone 10 mg daily. Routine labs today. Follow-up 3 months. Sooner if needed. Assessment & Plan (07/26/2023 12:27 PM CDT): CDAI 32. Over the last 6 weeks, eRgina has noted persistent severe pain, stiffness, and swelling in the hands, shoulders, hips, knees, and feet. A.m. stiffness for 15-20 minutes. Scattered swelling and tenderness, as above. Did recently retire, which I suspect will be beneficial for his joints. We did again spend time discussing smoking cessation. Again, discussed stopping Rinvoq and switching treatment to Actemra infusions versus Rituxan infusions. Discussed side effects of both medications. After further discussion, he was willing to proceed with Actemra infusions. Patient advised of the side effects of the medication, including but not limited to increase risk of infection, increased LFTs, blood count abnormalities, as well as increased cholesterol. Discussed Kenalog IM injection, which he defers due to concerns regarding side effects given his frequent steroid requirements. Otherwise, will continue methotrexate 20 mg p.o. weekly with FA 1 mg daily, meloxicam 15 mg daily, prednisone 10 mg daily. Routine labs today. Follow-up 2 months. Sooner if needed. Assessment & Plan (04/19/2023 9:56 AM CDT): CDAI 32. Regina had benefit with the Kenalog IM injection given at last visit. Unfortunately, he does continue to experience chronic joint pain, stiffness, and swelling predominantly in the hands. At today's visit, we did discuss potential change from Rinvoq to Actemra versus Rituxan. We discussed side effects of the medications and he defers a change at this time. Spent extensive time discussing smoking cessation and reducing sugar intake while on prednisone. Will need to maintain on current treatment regimen of methotrexate 20 mg p.o. weekly with FA 1 mg daily, meloxicam 15 mg daily, Rinvoq 15 mg daily, prednisone 10 mg daily. Routine labs today. Follow-up 3 months. Sooner if needed. Due to burden of disease, will administer kenalog 100 mg IM injection, in office, today. Patient was advised of the potential side effects of the medication, including but not limited to increased blood sugar, weight gain, avascular necrosis, glaucoma, cataracts, and/or osteoporosis. Assessment & Plan (03/01/2023 10:59 AM CDT): CDAI 42. Unfortunately, he is in another flare of his inflammatory arthritis. Has scattered swelling and tenderness across numerous joints. Unfortunately, he has continue his flares requiring intermittent Kenalog IM injections. We have spent extensive time discussing long-term risks of steroids. He continues to defer alternative biologic and targeted synthetic DMARD options, as still feels that Rinvoq has been the most beneficial and defers injectable medications. Due to burden of disease, will administer kenalog 100 mg IM injection, in office, today. Patient was advised of the potential side effects of the medication, including but not limited to increased blood sugar, weight gain, avascular necrosis, glaucoma, cataracts, and/or osteoporosis. Will continue methotrexate 20 mg p.o. weekly with FA 1 mg daily, meloxicam 15 mg daily, Rinvoq 15 mg daily, prednisone 10 mg daily. Routine labs today. Follow-up 3 months. Sooner if needed. Assessment & Plan (11/30/2022 12:31 PM AIRPLANE PATROL PILOT): CDAI 10. Noted improvement with Kenalog IM injection given at last visit. Does have some mild residual discomfort in the bilateral hands with a.m. stiffness for 10 minutes. Overall, doing fairly well at this time. He continues to defer alternative biologic and targeted synthetic DMARD options, as has felt that Rinvoq has been the most beneficial. He will be changing new new insurance plan in the next 1-2 months. If flares continue to recur, could consider alternative biologic options at that point. Otherwise, will continue methotrexate 20 mg p.o. weekly with FA 1 mg daily, meloxicam 15 mg daily, Rinvoq 15 mg daily, 10 mg daily. Routine labs today. Follow-up 3 months. Sooner if needed. Assessment & Plan (10/26/2022 11:20 AM AIRPLANE PATROL PILOT): CDAI 41. Presents in a flare of his inflammatory arthritis. Has had increased joint pain, stiffness, swelling in the hands, feet along with pain in the shoulders, knees. Has considerable synovitis on exam today. Has previously deferred alternative biologic and targeted synthetic DMARD options, as felt that Rinvoq has been most beneficial. He remained hesitant today, although did consider a potential change at this point. He will be changing to a new insurance plan in the upcoming 2-3 months. For this reason, will maintain on current treatment regimen at this time and consider alternative biologic options with new insurance plan. Due to burden of disease, will administer kenalog 100 mg IM injection, in office, today. Patient was advised of the potential side effects of the medication, including but not limited to increased blood sugar, weight gain, avascular necrosis, glaucoma, cataracts, and/or osteoporosis. Otherwise, will continue methotrexate 20 mg p.o. weekly, FA 1 mg daily, meloxicam 15 mg daily, Rinvoq 15 mg daily, prednisone 10 mg daily. Routine labs today. Follow-up 4 weeks. Sooner if needed. Assessment & Plan (07/30/2022 10:54 AM AIRPLANE PATROL PILOT): CDAI 26. Noted significant benefit with the Kenalog IM injection given at last visit. He does continue to have some residual discomfort in the hands/knees, which is manageable at this time. Has active synovitis, as above. He continues to defer alternative biologic and targeted synthetic DMARD options, SSA felt that Rinvoq has been most beneficial option at this point. We have been unable to taper off prednisone and continues to require intermittent Kenalog IM injections unfortunately. Does anticipate retiring in the next several months, which I suspect will be beneficial for his joints. At this time, will continue methotrexate 20 mg p.o. weekly, FA 1 mg daily, meloxicam 15 mg daily, Rinvoq 15 mg daily, prednisone 10 mg daily. Routine labs today. Follow-up 3 months. Sooner if needed. Assessment & Plan (06/15/2022 3:46 PM CDT): CDAI 32. Has had increased discomfort in the bilateral hands with a.m. stiffness for 30-45 minutes. Active synovitis, as above. Does not appear adequately controlled. Overall, have had difficulty achieving adequate disease control on his case. Continues to defer alternative biologic and has felt that Rinvoq has been the most beneficial option to this point. Have been unable to taper prednisone and requires intermittent Kenalog IM injections unfortunately. Is aware of the risks of long- term steroid use, which has been discussed numerous times. Due to burden of disease, will administer kenalog 100 mg IM injection, in office, today. Patient was advised of the potential side effects of the medication, including but not limited to increased blood sugar, weight gain, avascular necrosis, glaucoma, cataracts, and/or osteoporosis. Will continue methotrexate 20 mg p.o. weekly, FA 1 mg daily, meloxicam 50 mg daily, Rinvoq 50 mg daily, prednisone 10 mg daily. Routine labs today. Follow-up 6 weeks. Sooner if needed. Seen with Dr. Dobbs. >30 minutes spent reviewing patient's records, gathering pertinent medical history, performing physical exam, counseling/educating patient about diagnosis and treatment plan, and documenting today's office visit in the EMR. Assessment & Plan (03/16/2022 2:58 PM CDT): CDAI 13. Have profound response with the Kenalog IM injection given at last visit. Has minimal symptoms in the hands, knees, feet at this time. Few scattered swollen joints, as above. Overall, have had extreme difficulty achieving adequate disease control in his case is doing fairly well at this time. Continues to defer alternative biologics and feels that Rinvoq has been the most beneficial option to this point. Unfortunately, have been unable to taper prednisone without exacerbating symptoms, so will need to maintain at his current prednisone dose. Will continue methotrexate 20 mg weekly, FA 1 mg daily, meloxicam 15 mg daily, Rinvoq 15 mg daily, prednisone 10 mg daily. Routine labs today. Follow-up 3 months. Sooner if needed. >30 minutes spent reviewing patient's records, gathering pertinent medical history, performing physical exam, counseling/educating patient about diagnosis and treatment plan, and documenting today's office visit in the EMR. Assessment & Plan (02/16/2022 4:14 PM CDT): CDAI 28. After last visit, did try tapering prednisone to 7 mg daily with exacerbation of symptoms. This reason, did increase prednisone back to 10 mg daily, which is the dose that he is currently on. At present, notes persistent joint pain, stiffness swelling bilateral hands along with pain in the shoulders and feet. Synovitis on exam, as above. Does not appear adequately controlled. Has felt that Rinvoq has been most beneficial for him. Unfortunately, have had difficulty achieving adequate disease control. We did spend time discussing switching Rinvoq to alternative biologic. At this time, he continues to defer injectable and infusion medication options. Due to burden of disease, will administer kenalog 100 mg IM injection, in office, today. Patient was advised of the potential side effects of the medication, including but not limited to increased blood sugar, weight gain, avascular necrosis, glaucoma, cataracts, and/or osteoporosis. Will maintain on methotrexate 20 mg weekly, FA 1 mg daily, meloxicam 15 mg daily, Rinvoq 15 mg daily, prednisone 10 mg daily. Routine labs today. Follow-up 4 weeks. Sooner if needed. If still doing poorly at next visit, will rediscuss alternative biologic options, which were discussed today. Assessment & Plan (11/10/2021 2:42 PM AIRPLANE PATROL PILOT): CDAI 9. Had significant benefit with Kenalog IM injection given at last visit. Joints doing fairly well with some mild residual joint complaints. Minimal swelling in the hands on exam. Doing fairly well. Currently on prednisone 10 mg daily. Will taper by 1 mg every 2 weeks until off. Otherwise, will continue methotrexate 20 mg weekly, FA 1 mg daily, meloxicam 15 mg daily, Rinvoq 15 mg daily. Routine labs today. Follow-up 3 months. Sooner if needed. Assessment & Plan (09/29/2021 3:17 PM AIRPLANE PATROL PILOT): CDAI 37. Regina had done very well after last visit. With that said, over the last 2 weeks, has noted increased joint pain, stiffness, swelling in the bilateral hands/wrists. A.m. stiffness for 15-20 minutes. Synovitis increased on exam today. He continues to feel that Rinvoq has been the most beneficial medication that has been on. Appears to be in a flare of his inflammatory arthritis. Due to burden of disease, will administer kenalog 100 mg IM injection, in office, today. Patient was advised of the potential side effects of the medication, including but not limited to increased blood sugar, weight gain, avascular necrosis, glaucoma, cataracts, and/or osteoporosis. Given the severity of his inflammatory arthritis, I am pleased that his flares have become much less frequent on medications requiring less frequent steroids. I have concerns that joint symptoms will worsen and flares will become more frequent if we switch and he has always had strong hesitations to switch medications. Will maintain on methotrexate 20 mg weekly, FA 1 mg daily, meloxicam 15 mg daily, prednisone 10 mg daily, Rinvoq 15 mg daily. Routine labs today. Follow-up 6 weeks. Sooner if needed. If doing well at next visit, could consider tapering on prednisone. Assessment & Plan (06/23/2021 3:07 PM CDT): CDAI 9. He noted significant response with the Kenalog IM injection given at last visit. Denies significant peripheral joint complaints this time. Minimal swelling on exam. Will continue methotrexate 20 mg weekly, FA 1 mg daily, meloxicam 15 mg daily, prednisone 10 mg daily, Rinvoq 15 mg daily. Routine labs today. Follow-up 3 months. Sooner if needed. If symptoms worsen, could reconsider Actemra. >30 minutes spent reviewing patient's records, gathering pertinent medial history, performing physical exam, counseling/educating patient about diagnosis and treatment plan, and documenting today's office visit in the EMR. Assessment & Plan (05/19/2021 1:46 PM CDT): CDAI 21. Has done very well since last visit. With that said, over the past week, he has experienced some significant increased discomfort in the bilateral feet/knees. Notes only mild residual discomfort in the hands, although these have done very well. He does feel that Rinvoq has been the most beneficial in comparison to previous medications. It is certainly not ideal that he is currently in a joint flare, although I am pleased the inflammatory arthritis done fairly well for the past 4 months given the difficulty that we have had with achieving adequate disease control in his case. He is requesting a Kenalog IM injection today. Due to burden of disease, will administer kenalog 100 mg IM injection, in office, today. Patient was advised of the potential side effects of the medication, including but not limited to increased blood sugar, weight gain, avascular necrosis, glaucoma, cataracts, and/or osteoporosis. Will continue methotrexate 20 mg weekly, FA mg daily, meloxicam 15 mg daily, prednisone 10 mg daily, Rinvoq 15 mg daily. Routine labs today. Follow-up 4 weeks. Sooner if needed. If symptoms do worsen, could reconsider Actemra. Discussed speaking with his employer about FMLA paperwork. Assessment & Plan (02/16/2021 1:50 PM CDT): CDAI 21. He noted improvement with Kenalog IM injection given at last visit. After last visit, did discuss switching Rinvoq to Olumiant. Unfortunately, was denied by insurance, as must try/fail Actemra and Orencia. He continues to adamantly defer injectable/fusion medications and would like to remain on Rinvoq for this reason. Continues to have chronic joint pain, stiffness, swelling in the bilateral hands. Synovitis does persist on exam. Not adequately controlled and suspect that symptoms will likely exacerbate once his Kenalog IM injection wears off, which was discussed today. Alternative medication options have been exhausted. Will continue methotrexate 20 mg weekly, FA 1 mg daily, meloxicam 15 mg daily, prednisone 10 mg daily, Rinvoq 15 mg daily. Recent labs reviewed. Follow-up 3 months. Sooner if needed. Patient states that if symptoms again flare, would reconsider Actemra injections at that point. Assessment & Plan (01/13/2021 5:06 PM CDT): CDAI 45. He is doing very poorly at this time with significant increased joint pain in the hands, elbows, shoulders, hips, knees, feet. Synovitis is present on exam. Appears very poorly controlled. Given his poor disease control, discussed switching to alternative biologic, although he continues to adamantly defer injectable/infusion medications and defers addition of oral DMARDs. Again, extensively discussed long-term risks uncontrolled inflammation. Will stop Rinvoq at this time and trial Olumiant. Given samples today. We will begin approval for Olumiant. Discussed potential side effects of the medication, including but not limited to increased risk of infection, blood clots, headache, diarrhea, bowel perforation, and/or lymphoma risk. Continue methotrexate 20 mg weekly, FA 1 mg daily, meloxicam 15 mg daily, prednisone 10 mg daily. Routine labs today. Follow-up 4 weeks. Sooner if needed. Due to burden of disease, will administer kenalog 100 mg IM injection, in office, today. Patient was advised of the potential side effects of the medication, including but not limited to increased blood sugar, weight gain, avascular necrosis, glaucoma, cataracts, and/or osteoporosis. 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 Patient noted some benefit with Kenalog IM injection given at last visit, although has had worsened joint symptoms in the hands, feet recently. Continues to have persistent synovitis on exam. Appears poorly controlled. Given his persistent poor disease control, discussed extensively changing the Rinvoq medication to alternative biologic medication, such as Actemra. Patient continues to adamantly defer injectable and infusion medications and has deferred addition of oral dmards due to concerns for polypharmacy. For this reason, alternative medication options are limited. Extensively discussed with him the long-term risks of uncontrolled inflammation. He does feel that he is managing well enough on current treatment regimen. At this time, will continue methotrexate 20 mg weekly, FA 1 mg daily, meloxicam 15 mg daily, Rinvoq 15 mg daily, prednisone 10 mg daily. He has been made aware the long-term risks prednisone use. Routine labs today. Follow-up 3 months. Sooner if needed. Assessment & Plan (09/09/2020 4:52 PM AIRPLANE PATROL PILOT): CDAI 24. After last visit, patient did note increased joint pain in the feet>hands. For this reason, he was given an increased prednisone taper, which did improve symptoms with subsequent worsened symptoms once tapered back to current 10 mg daily dosing. At today's visit, notes significant joint pain in the bilateral feet>>hands. Feet symptoms are exacerbated with standing for extended periods at work. He does have strong hesitation with stopping the Rinvoq medication due to noting that this medication has offered most benefit. Does possess synovitis across numerous joints on exam today. Given his strong reservations to change in medication, would like to trial kenalog first for improvement. Due to burden of disease, will administer kenalog 100 mg IM injection, in office, today. Patient was advised of the potential side effects of the medication, including but not limited to increased blood sugar, weight gain, avascular necrosis, glaucoma, cataracts, and/or osteoporosis. Otherwise, will continue methotrexate 20 mg weekly, FA 1 mg daily, meloxicam 15 mg daily, Rinvoq 15 mg daily. Continue prednisone 10 mg daily. Kenalog IM is not ideal given his long-term steroid use, although continue to feel appropriate given his significant joint activity. He is aware of the long-term side effect risks. Routine labs today. Follow-up 4 weeks. Sooner if needed. Seen with Dr. Dobbs. If still doing poorly at next visit, would need to consider alternative medication at that point. Assessment & Plan (07/15/2020 3:30 PM CDT): CDAI 8. Symptoms much improved with Kenalog injection given at last visit. Does note some mild intermittent joint pain in the hands/feet, which is overall doing fairly well at this time and much improved from last visit. Minimal synovitis on exam. Will continue methotrexate 20 mg weekly, FA 1 mg daily, meloxicam 15 mg daily, Rinvoq 15 mg daily. Will continue prednisone 10 mg daily. This is not ideal given his long-term steroid use, although do feel appropriate given his significant difficulty tapering off in the past. Routine labs today. Follow-up 3 months. Sooner if needed. Assessment & Plan (06/03/2020 3:27 PM CDT): Cdai 24. After last prednisone down to g daily with significant increased pain, stiffness in bilateral knees, feet along with some persistent discomfort, stiffness, swelling in the bilateral hands. Subsequently increased prednisone back to 10 mg daily with some improvement symptoms. Continues to note persistent joint symptoms at this time. Unfortunately, he has had persistent joint activity that has been difficult to control with dmard's/biologics. Due to burden of disease, will administer kenalog 100 mg IM injection, in office, today. Patient was advised of the potential side effects of the medication, including but not limited to increased blood sugar, weight gain, avascular necrosis, glaucoma, cataracts, and/or osteoporosis. Unfortunately, steroids are not ideal given his very poorly controlled disease. With that said, do feel that this is warranted given his persistent high disease activity. Will maintain on Rinvoq at this time, as he had felt the most benefit with this medication. If symptoms persist at next visit, would need consider alternative that point. Will continue methotrexate 20 mg weekly, FA 1 mg daily, meloxicam 15 mg daily, Rinvoq 15 mg daily. Continue prednisone 10 mg daily. Routine labs today. Follow-up 4 weeks. Sooner if needed. Assessment & Plan (03/04/2020 3:40 PM CDT): CDAI 7. Patient noted significant improvement in joint complaints since receiving the Kenalog in beginning Rinvoq medication after last visit. Denies significant pain at this time. Minimal synovitis on exam. Overall, does appear adequately controlled. Will continue methotrexate 20 mg weekly, FA 1 mg daily, meloxicam 15 mg daily, Rinvoq 15 mg daily. Currently on prednisone 10 mg daily. Will begin to taper by 1 mg every 4 weeks until off. Routine labs today, including QuantiFERON. Follow-up 3 months. Sooner if needed. Assessment & Plan (01/22/2020 3:55 PM CDT): CDAI 37. Patient has remained on Cimzia since last visit. Notes significant worsened joint complaints at this time, primarily involving the bilateral hands, ankles/feet, knees. Symptoms much worse in the morning and do improve with use. Continues to possess synovitis on exam. Does not appear adequately controlled at this time. Will stop Cimzia and begin approval for Rinvoq 15 mg daily. Discussed potential side effects of the medication, including but not limited to increased risk of infection, blood clots, headache, diarrhea, bowel perforation, and/or lymphoma risk. Given handout discussing the medication. Will continue methotrexate 20 mg weekly, FA 1 mg daily, meloxicam 15 mg daily, prednisone 10 mg daily with hopes of tapering in the near future. Due to burden of disease, will administer kenalog 100 mg IM injection, in office, today. Patient was advised of the potential side effects of the medication, including but not limited to increased blood sugar, weight gain, avascular necrosis, glaucoma, cataracts, and/or osteoporosis. Routine labs today. Fu 6 weeks. Sooner if needed. Seen with Dr. Dobbs. Assessment & Plan (11/06/2019 3:32 PM AIRPLANE PATROL PILOT): CDAI 11. Since last visit, patient began Cimzia starter kit x2 injections, although has subsequently stopped the past 6 weeks due to recent bronchitis. Patient did receive short course of high-dose prednisone per PCP, which did significantly improve bronchitis and joint symptoms. Minimal peripheral joint complaints at this time. Symptoms were doing very poorly prior to high-dose steroid taper. Some synovitis does persist on exam. Will restart Cimzia with starter kit followed by 200 mg Q 2 week injections. Will continue methotrexate 20 mg weekly, FA 1 mg q.d., meloxicam 15 mg q.d.. Continue prednisone 10 mg q.d. with hopes of tapering in the future, although have had significant difficulty with this in the past. Routine labs today. Follow-up 6 weeks. Sooner if needed. Assessment & Plan (08/07/2019 3:17 PM AIRPLANE PATROL PILOT): CDAI 21. Patient has not begun the Cimzia medication since last visit, as has not been able to reach [facility] for a teaching visit and has been unable to come to our office for teaching on the injection. Continues to note significant joint discomfort, primarily involving the bilateral hands, shoulders, elbows. Persistent synovitis on exam. Appears poorly controlled. Patient is requesting further increase on prednisone given his significant activity, which is not ideal given his long-term steroid use, although do feel that this is warranted given his very high activity. For this reason, will increase prednisone to 20 mg daily x5 days, 15 mg daily x5 days, followed by resuming prednisone at 10 mg daily. Patient was advised of the potential side effects of the medication, including but not limited to increased blood sugar, weight gain, avascular necrosis, glaucoma, cataracts, and/or osteoporosis. Continue methotrexate 20 mg weekly, FA 1 mg daily, meloxicam 15 mg daily. Routine labs today. Follow-up 2 months. Sooner if needed. Assessment & Plan (06/26/2019 4:06 PM CDT): High CDAI 35. Patient has not begun the Cimzia occasion, as discussed at last visit, as has been awaiting to hear back from nurse educator for teaching visit. Continues to note significant joint discomfort across several joints in the bilateral hands, feet, knees, shoulders. A.m. Stiffness for 5 minutes. Symptoms worsened significantly with rest. Disease continues to appear very poorly controlled at this time. I am concerned with his long-term steroid use and wrist for side effects, although given his did severe disease activity which is poorly controlled, do feel that this is necessary. Side effects wrist for again discussed with patient and would defer was advised the importance of beginning steroid sparing medications, such as Cimzia. Will proceed with Cimzia biweekly subcutaneous injections after initial loading dose. Continue methotrexate 20 mg weekly, FA 1 mg q.d., meloxicam 15 mg q.d.. Routine labs today. Follow-up 6 weeks. Sooner if needed. Seen with Dr. Dobbs. Assessment & Plan (05/01/2019 4:49 PM CDT): Moderate CDAI 20. Since last visit, patient had worsened joint symptoms with tapering down on prednisone, was so was forced resume at 10 mg q.d. with improvement in symptoms. Does continue to appear poorly controlled at this time. Over the past several months, patient has deferred several additional medication options due to concern of no benefit and fear of potential side effects. Given his persistent activity in requirements for prednisone, rediscussed medication options and patient would like to proceed with Kevzara biweekly subcutaneous injections. Patient advised of the side effects of the medication, including but not limited to increase risk of infection, rash, injection site reaction. Given handout discussing the medication. Will continue methotrexate 20 mg weekly, FA 1 mg q.d., meloxicam 15 mg q.d.. Routine labs today. Follow-up 2 months. Sooner if needed. Assessment & Plan (03/06/2019 4:14 PM CDT): Moderate CDAI 17. Patient has been off the Xeljanz medication for the past several weeks and has not noticed any worsened symptoms. Continues to have a persistent joint discomfort in the bilateral hands and knees with morning stiffness for 15-20 minutes. With that said, patient would not like to be on any further medications, as he feels that he has not noticed any major change in symptoms. For this reason, will begin to taper prednisone by 1 mg every 4 weeks until off. Will continue methotrexate 20 mg weekly, FA 1 mg q.d., meloxicam 15 mg q.d.. If symptoms again worsen, will consider Cimzia versus Kevzara, which has been discussed in the past. Recent labs reviewed. Follow-up 2 months. Sooner if needed. Assessment & Plan (01/16/2019 4:35 PM CDT): Moderate CDAI 15. Since last visit, patient did go to the emergency department due to pain in the left lower quadrant, which was diagnosed with a muscle strain at that time and has been improving with Flexeril. States that the emergency department had told him that the Xeljanz may have been the cause for some of his muscle pains. For this reason he decided to stop the Xeljanz medication. My suspicion is low for Xeljanz the cause for his muscle symptoms. With that said, will just stop medication at this time, as did not appear to be controlling his symptoms. Overall, patient notes that his joint symptoms are doing fairly well today. With that said, discussed with patient that this is likely due to the Kenalog injection that we gave him at last visit, as well as increase on the prednisone dose. Given that we would all like to eventually wean him off prednisone, discussed with patient additional medication options, including her Orencia, which patient deferred due to not wanting infusions and frequency of weekly injections. Also discussed Cimzia, which would be less frequent in an office injection versus kevzara which would be biweekly subcutaneous injections similar to the Humira that he was on in the past. Patient would like to consider these options, although defer them at this time. Will reconsider at next visit. For this reason, will continue methotrexate 20 mg weekly, FA 1 mg q.d., meloxicam 15 mg q.d., prednisone 10 mg q.d.. Routine labs today. Follow-up 6 weeks. Sooner if needed. Seen with Dr. Dobbs. Assessment & Plan (12/19/2018 4:20 PM CDT): High CDAI. Patient notes that this is the worst joint pain and stiffness that he has felt in the past. Joint symptoms primarily involving the hands, feet, knees, as well as the shoulders. A.m. Stiffness lasting majority of the day. Did begin xeljanz on 10/19/2018. Also notes that he went without methotrexate medication for several weeks. Will need to give the xeljanz more time to work and give mtx more time, as well, as restarted. Will continue methotrexate 20 mg weekly, FA 1 mg q.d., Xeljanz 11 mg q.d., meloxicam 15 mg q.d., and increase prednisone to 10 mg q.d. At this time. Due to burden of disease, will administer kenalog 100 mg IM injection, in office, today. Patient was advised of the potential side effects of the medication, including but not limited to increased blood sugar, weight gain, avascular necrosis, glaucoma, cataracts, and/or osteoporosis. Routine labs today. Follow-up 4 weeks. Sooner if needed. Seen with Dr. Dobbs. If doing poorly at next visit, would consider alternative biologic medication, such as her Orencia versus Remicade infusions. Assessment & Plan (09/12/2018 3:40 PM AIRPLANE PATROL PILOT): High CDAI. Continues to have notable pain and stiffness, primarily involving the joints of the bilateral hands, ankles/feet, as well as the knees. Symptoms have worsened some with tapering down on the prednisone, although still would like to try and get off of prednisone halima. Does have notable swelling and tenderness on exam today. Does not appear adequately controlled at this time. Will stop humira at this time. Begin approval for xeljanz 11 mg QD. Discussed potential side effects of the medication, including but not limited to increased risk of infection, headache, diarrhea, bowel perforation, and/or lymphoma risk. Continue mtx 20 mg weekly, fa 1 mg QD, as well as meloxicam 15 mg QD. Recent bloodwork reviewed with patient. Will recheck at next visit. FU 6 weeks. Sooner if needed. Seen with Dr. Dobbs. Due to burden of disease, will administer kenalog 100 mg IM injection, in office, today. Patient was advised of the potential side effects of the medication, including but not limited to increased blood sugar, weight gain, avascular necrosis, glaucoma, cataracts, and/or osteoporosis. Assessment & Plan (07/11/2018 4:23 PM CDT): Moderate CDAI. Continues to deny much pain in the joints of the bilateral hands. With that said, does continue to Possess swelling across several joints in the hands. Does not appear adequately controlled at this time, although patient would like to begin to taper off the prednisone. Have discussed trying alternative biologic medications versus Xeljanz, which patient has deferred. States that he will reconsider possible Xeljanz at next visit. Will also wait, as patient is considering possible right knee surgery in the near future. Will continue methotrexate 20 mg weekly, FA 1 mg q.d., Humira biweekly subcutaneous injections, as well as meloxicam 10 mg q.d.. We will begin to taper prednisone by 1 mg every 2 weeks. Follow-up 2 months. Sooner if needed. Of note, patient's biggest complaint continues to be his right knee with MRI which displayed full thickness tear in this posterior medial meniscus, as well as OA. Patient will be following up with orthopedic doctor in the knee of future and possibly considering surgery. If surgery, will have patient stop methotrexate and Humira prior to. Assessment & Plan (05/09/2018 3:07 PM CDT): Low moderate CDAI. Patient missed his last Humira dose and has noted some mild increased stiffness in the joints of his hand. Continues to have persistent swelling across MCP and PIP joints of the bilateral hands. With that said, patient notes improvement on current treatment regimen and defers any other treatment options at this time. Will continue methotrexate 20 mg weekly, FA 1 mg q.d.. Continue prednisone 10 mg q.d., as well as Humira biweekly subcutaneous injections. Continue oxaprozin 600 mg b.i.d. at this time. Follow-up 4 weeks. Sooner if needed. Seen with Dr. Dobbs. Assessment & Plan (04/04/2018 4:54 PM CDT): Moderate CDAI. Majority of complaints continue to involve the right knee with worsening with activity. Stiffness in the hands at times, but minimal complaints. With that said, continues to have persistent notable swelling across most mcp and pip joints in the bilateral hands. Denies much benefit with the MTX and/or Humira medication. Disease appears poorly controlled at this time on current Humira. Discussed possible change to Orencia infusions, but patient defers this treatment. Also, discussed possible changing to oral Xeljanz, but patient also deferred. Would like to wait until seeing orthopedics on Saturday for his right knee. At this time, will continue current treatment of MTX 20 mg weekly, fa 1 mg QD. Continue Humira bi-weekly SQ injections at this time, as well as prednisone 10 mg QD, oxaprozin 600 mg BID. Fu 4 weeks. Sooner if needed. Routine labs today. Dr. Dobbs out of office today, seen with Dr. Ernst. Assessment & Plan (02/28/2018 9:58 PM CDT): High CDAI. Majority of complaints today is with the right knee. With that said, Still having swelling across mcp and pip joints in the bilateral hands. Does note that the hand pain and stiffness has improved some over the past month, but now has significant right knee pain. Saw orthopedics yesterday and was given a steroid injection into the right knee, but hasn't had much relief to this point. Suspicious that knee pain is likely multifactorial of OA, as well as some RA. Given that hand pain and swelling has improved and patient has only been on Humira for two and a half months, will try to see if symptoms improve some more prior to next visit. Discussed possible Enbrel, but patient defers at this time, although may reconsider at next visit. Will continue MTX 20 mg QD, FA 1 mg QD, as well as humira bi-weekly SQ injections. Will increase the prednisone to 10 mg QD at this time. Would like to taper this at some point, although patient has very high disease activity today. Re-discussed potential SE of prednisone. Patient notes that meloxicam has not been helping any of his symptoms. Will try oxaprozin 600 mg BID prn. Discussed potential side effects, including but not limited to GI and kidney. FU 4 weeks. Sooner if needed. Routine labs today. Assessment & Plan (01/24/2018 2:42 PM CDT): High CDAI. Significant swelling and tenderness noted across mcp and pip joints in the bilateral hands. Restarted Humira bi-weekly injections approximately 7 weeks ago. Has continued to take mtx 20 mg weekly, as well as prednisone 5 mg qd. Notes that he has been doing worse since last visit. Appears very poorly controlled at this time. Although patient has only been back on the Humira for ~5 weeks. Will need to allow more time for this to work. Due to burden of disease, will administer kenalog 100 mg IM injection, in office, today. Patient was advised of the potential side effects of the medication, including but not limited to increased blood sugar, weight gain, avascular necrosis, glaucoma, cataracts, and/or osteoporosis. Will continue with current treatment of mtx 20 mg weekly, as well as folic acid 1 mg qd. Continue prednisone 5 mg QD and Humira bi-weekly sq injections. Repeat routine labs today. Fu 4 weeks. Sooner if needed. Assessment & Plan (11/26/2017 4:[address] PM AIRPLANE PATROL PILOT): cdai = 49. Has held humira for the past month due to rashes. Still on mtx 20mg weekly, prednisone. His rashes are getting worse as well as joints are much worse. Recommend going back to derm for eval as the rashes may be more than fungal infection. May need biopsy. Restart humira. Recent cxr normal. Check labs today. F/u [address] Dobbs. Assessment & Plan (10/21/2017 3:[address] PM AIRPLANE PATROL PILOT): Low disease activity with mtx 20mg weekly, prednisone and humira. labs normal. Will keep prednisone at 5mg daily. Hold humira to see if his rash will resolve. Just had labs. Needs cxr today. F/u 1 month, sooner if needed. Assessment & Plan (07/26/2017 3:09 PM CDT): Low disease activity with mtx 20mg weekly, prednisone and humira. labs normal. Will con't tapering prednisone 1mg/2 weeks as he wants to get off of it. F/u 2 month, sooner if needed. . Assessment & Plan (06/14/2017 3:05 PM CDT): Low disease activity with mtx 20mg weekly, prednisone and humira. labs normal. Will start tapering prednisone 1mg/2 weeks as he wants to get off of it. F/u 1 month, sooner if needed. . Assessment & Plan (04/26/2017 3:33 PM CDT): Moderate disease activity with mtx 15mg weekly, prednisone and humira. will increase mtx to 20mg weeklyt. labs normal. f/u 1 month, sooner if needed. Discussed tapering prednisone but will try tapering 1mg/2 weeks at his next ov. Encounter for long-term (current) use of medicat ions 04/26/2017 Assessment & Plan (01/29/2025 3:07 PM CDT): Routine labs today. Negative quant 04/2020 Negative hep panel 08/2016 On mtx, fa, mobic, prednisone Has concerns regarding paresthesias and intermittent muscle cramping in the legs. Requested magnesium levels checked. Will include these with labs. Peripheral neuropathy secondary to DM2 may be contributing to some of his symptoms. Assessment & Plan (11/26/2024 3:23 PM AIRPLANE PATROL PILOT): Routine labs today. Negative quant 04/2020 Negative hep panel 08/2016 On mtx, fa, mobic, prednisone Has concerns regarding paresthesias and intermittent muscle cramping in the legs. Requested magnesium levels checked. Will include these with labs. Peripheral neuropathy secondary to DM2 may be contributing to some of his symptoms. Assessment & Plan (08/28/2024 3:15 PM AIRPLANE PATROL PILOT): Routine labs today. Negative quant 04/2020 Negative hep panel 08/2016 On mtx, fa, mobic, prednisone Assessment & Plan (06/04/2024 2:42 PM CDT): Routine labs today. Negative quant 04/2020 Negative hep panel 08/2016 On mtx, fa, mobic, prednisone Assessment & Plan (02/28/2024 2:55 PM CDT): Routine labs today. Negative quant 04/2020 Negative hep panel 08/2016 On mtx, fa, mobic, prednisone Assessment & Plan (11/15/2023 2:41 PM AIRPLANE PATROL PILOT): Routine labs today. Negative quant 04/2020 Negative hep panel 08/2016 On mtx, fa, mobic, prednisone Assessment & Plan (07/26/2023 12:28 PM CDT): Routine labs today. Negative quant 04/2020 Negative hep panel 08/2016 On mtx, fa, mobic, prednisone Assessment & Plan (04/19/2023 9:58 AM CDT): Routine labs today. Negative quant 04/2020 Negative hep panel 08/2016 On mtx, fa, mobic, prednisone Assessment & Plan (03/01/2023 11:00 AM CDT): Routine labs today. Negative quant 04/2020 Negative hep panel 08/2016 On mtx, fa, mobic, prednisone Assessment & Plan (11/30/2022 12:32 PM AIRPLANE PATROL PILOT): Routine labs today. Negative quant 04/2020 Negative hep panel 08/2016 On mtx, fa, mobic, prednisone Assessment & Plan (10/26/2022 11:20 AM AIRPLANE PATROL PILOT): Routine labs today. Negative quant 04/2020 Negative hep panel 08/2016 On mtx, fa, mobic, prednisone Assessment & Plan (07/30/2022 10:56 AM AIRPLANE PATROL PILOT): Routine labs today. Negative quant 04/2020 Negative hep panel 08/2016 On mtx, fa, mobic, prednisone Assessment & Plan (06/15/2022 3:46 PM CDT): Routine labs today. Negative quant 04/2020 Negative hep panel 08/2016 On mtx, fa, mobic, prednisone Assessment & Plan (03/16/2022 3:01 PM CDT): Routine labs today. Negative quant 04/2020 Negative hep panel 08/2016 On mtx, fa, mobic, prednisone Recommended screening colonoscopy, as is due for this. To discuss loose stools with pcp Assessment & Plan (02/16/2022 4:17 PM CDT): Routine labs today. Negative quant 04/2020 Negative hep panel 08/2016 On mtx, fa, mobic, prednisone Will check hemoglobin A1c for PCP per patient request Assessment & Plan (11/10/2021 2:42 PM AIRPLANE PATROL PILOT): Routine labs today. Negative quant 04/2020 Negative hep panel 08/2016 On mtx, fa, mobic, prednisone Assessment & Plan (09/29/2021 3:14 PM AIRPLANE PATROL PILOT): Routine labs today. Negative quant 04/2020 Negative hep panel 08/2016 On mtx, fa, mobic, prednisone Assessment & Plan (06/23/2021 3:06 PM CDT): Routine labs today. Negative quant 04/2020 Negative hep panel 08/2016 On mtx, fa, mobic, prednisone Assessment & Plan (05/19/2021 1:45 PM CDT): Routine labs today. Negative quant 04/2020 Negative hep panel 08/2016 On mtx, fa, mobic, prednisone Assessment & Plan (02/16/2021 1:50 PM CDT): Routine labs today. Negative quant 04/2020 Negative hep panel 08/2016 On mtx, fa, mobic, prednisone Assessment & Plan (01/13/2021 5:06 PM CDT): Routine labs today. Negative quant 04/2020 Negative hep panel 08/2016 On mtx, fa, mobic, prednisone Assessment & Plan (10/14/2020 5:30 PM AIRPLANE PATROL PILOT): Routine labs today. Negative quant 04/2020 Negative hep panel 08/2016 On mtx, fa, mobic, rinvoq, prednisone Tried and failed humira, xeljanz, SE to aza and arava, failed cimzia Assessment & Plan (09/09/2020 2:53 PM AIRPLANE PATROL PILOT): Routine labs today. Negative quant 04/2020 Negative hep panel 08/2016 On mtx, fa, mobic, rinvoq, prednisone Tried and failed humira, xeljanz, SE to aza and arava, failed cimzia Assessment & Plan (07/15/2020 3:31 PM CDT): Routine labs today. Negative quant 04/2020 Negative hep panel 08/2016 On mtx, fa, mobic, rinvoq, prednisone Tried and failed humira, xeljanz, SE to aza and arava, failed cimzia Assessment & Plan (06/03/2020 3:27 PM CDT): Routine labs today. Negative quant 02/2019 Negative hep panel 08/2016 On mtx, fa, mobic, rinvoq, prednisone Tried and failed humira, xeljanz, SE to aza and arava, failed cimzia Assessment & Plan (03/04/2020 3:42 PM CDT): Routine labs today. Negative quant 02/2019 Negative hep panel 08/2016 On mtx, fa, mobic, rinvoq, prednisone Tried and failed humira, xeljanz, SE to aza and arava, failed cimzia Assessment & Plan (01/22/2020 3:58 PM CDT): Routine labs today. Negative quant 02/2019 Negative hep panel 08/2016 On mtx, fa, Tried and failed humira, xeljanz, SE to aza and arava, failed cimzia Assessment & Plan (11/06/2019 3:33 PM AIRPLANE PATROL PILOT): Routine labs today. Negative quant 02/2019 Negative hep panel 08/2016 On mtx, fa, cimzia biweekly sq injections Tried and failed humira, xeljanz, SE to aza and arava, Assessment & Plan (08/07/2019 3:18 PM AIRPLANE PATROL PILOT): Routine labs today. Negative quant 02/2019 Negative hep panel 08/2016 On mtx, fa Proceed with cimzia biweekly sq injections Tried and failed humira, xeljanz; would like to avoid injections/infusions; Although could reconsider if doing poorly at next visit, SE to aza and arava, Assessment & Plan (06/26/2019 4:06 PM CDT): Routine labs today. Negative quant 02/2019 Negative hep panel 08/2016 On mtx, fa Proceed with cimzia biweekly sq injections Tried and failed humira, xeljanz; would like to avoid injections/infusions; Although could reconsider if doing poorly at next visit, SE to aza and arava, Assessment & Plan (05/01/2019 4:52 PM CDT): Routine labs today. Negative quant 02/2019 Negative hep panel 08/2016 On mtx, fa Begin approval for kevzara q2 week injections. Tried and failed humira, xeljanz; would like to avoid injections/infusions; Although could reconsider if doing poorly at next visit, SE to aza and arava, Assessment & Plan (03/06/2019 4:15 PM CDT): Routine labs today. Negative quant 02/2019 Negative hep panel 08/2016 Tried and failed humira, xeljanz; would like to avoid injections/infusions; Although could reconsider if doing poorly at next visit Assessment & Plan (01/16/2019 4:36 PM CDT): Routine labs today. Negative quant 01/2018 Negative hep panel 08/2016 Tried and failed humira, xeljanz; would like to avoid injections/infusions; Although could reconsider if doing poorly at next visit Assessment & Plan (12/19/2018 4:26 PM CDT): Routine labs today. Negative quant 01/2018 Negative hep panel 08/2016 Tried and failed humira; would like to avoid injections/infusions; Although could reconsider if doing poorly at next visit Assessment & Plan (09/12/2018 3:38 PM AIRPLANE PATROL PILOT): Routine labs today. Negative quant 01/2018 Negative hep panel 08/2016 Tried and failed humira; would like to avoid injections/infusions; Assessment & Plan (07/11/2018 3:42 PM CDT): Routine labs today. Assessment & Plan (05/09/2018 3:09 PM CDT): Hep panel neg 12/16 Neg cxr 12/08 Neg tb 01/2018 Routine labs today. Assessment & Plan (04/04/2018 4:52 PM CDT): Hep panel neg 12/16 Neg cxr 12/08 Neg tb 01/2018 Assessment & Plan (02/28/2018 5:18 PM CDT): Hep panel neg 12/16 Neg cxr 12/08 Neg tb 01/2018 Assessment & Plan (01/23/2018 4:42 PM CDT): Hepatitis panel neg 12/16. Neg cxr 12/08 Quant gold neg 7/17. Recheck today. Assessment & Plan (11/26/2017 3:32 PM AIRPLANE PATROL PILOT): Hepatitis panel neg 12/16. Neg cxr 12/08 Quant gold neg 7/17. Assessment & Plan (10/21/2017 2:30 PM AIRPLANE PATROL PILOT): Hepatitis panel neg 12/16. cxr ordered today. Quant gold neg 7/17. Assessment & Plan (07/26/2017 3:12 PM CDT): Hepatitis panel neg 12/16. cxr ordered today. Quant gold neg 7/17. Assessment & Plan (06/14/2017 2:56 PM CDT): Hepatitis panel neg 12/16. cxr this year with pcp, will try to get copy of that. Quant gold neg 7/17. Assessment & Plan (04/26/2017 1:48 PM CDT): Hepatitis panel neg 12/16. Medical History Medical History Date Comments Hypertension Hypertension Family History Medical History Relation Name Comments Diabetes Other Family history of Diabetes mellitus; Hypertension Other Family history of Hypertension; Relation Name Status Comments Other Social History Tobacco Use Types Packs/Day Years Used Date Smoking Tobacco: Smoker, Current Status Unknown Alcohol Use Standard Drinks/Week Comments No 0 (1 standard drink = 0.6 oz pur e alcohol) Sex and Gender Information Value Date Recorded Sex Assigned at Not on file Legal Sex Male 11:49 PM AIRPLANE PATROL PILOT Gender Identity Not on file Sexual Orientation Not on file Obstetrics History Last Filed Vital Signs Vital Sign Reading Time Taken Comments Blood Pressure 114/50 01/29/2025 2:27 PM CDT Pulse 81 01/29/2025 2:27 PM CDT Temperature 36.7 C (98.1 F) 11/10/2021 1:02 PM AIRPLANE PATROL PILOT Respiratory Rate - - Oxygen Saturation 96% 01/29/2025 2:27 PM CDT Inhaled Oxygen Concentration - - Weight 92.5 kg (204 lb) 01/29/2025 2:27 PM CDT Height 182.9 cm (6') 01/29/2025 2:27 PM CDT Body Mass Index 27.67 01/29/2025 2:27 PM CDT Plan of Treatment Health Maintenance Due Date Last Done Comments Albumin Creatinine Ratio, Urine 1957 Colon Cancer Screening-Colonoscopy 1957 Depression Screening 1957 Fall Risk Assessment 1957 Prostate Cancer Screening-PSA 1957 Dilated Eye Exam 1957 Foot Exam 1957 Lipid Panel 1957 DTaP/Tdap/Td Vaccine (1 - Tdap) 1968 Hepatitis B Screening 12/27/1975 Pneumococcal vaccine 65+ (1 of 2 - PCV) 1976 Zoster Vaccine (1 of 2) 1976 Covid-19 Vaccine (3 - Modern a risk series) 09/15/2021 08/18/2021, 07/21/2021 Well Visit 65+ 2022 Influenza Vaccine (#1) 2025 Hemoglobin A1C 10/11/2025 04/10/2025, 03/03/2022 eGFR 04/10/2026 04/10/2025, 07/26, 02/22/2024, Additional history exists Hepatitis C Screening Completed 08/24/2016 Abdominal Aortic Aneurysm (A AA) Screen Completed 07/22/2024, 10/19/2022 Procedures Procedure Name Priority Date/Time Associated Diagnosis Comments HEMOGLOBIN A1C Routine 04/10/2025 8:37 AM CDT VITAMIN D 25 HYDROXY Routine 04/10/2025 8:37 AM CDT CBC WITH AUTO DIFFERENTIAL Routine 04/10/2025 8:37 AM CDT Rheumatoid arthritis involving both hands with negative rheumatoid factor (HCC) COMPREHENSIVE METABOLIC PANEL Routine 04/10/2025 8:37 AM CDT Rheumatoid arthritis involving both hands with negative rheumatoid factor (HCC) CRP (ACUTE PHASE) Routine 04/10/2025 8:3 7 AM CDT Rheumatoid arthritis involving both hands with negative rheumatoid factor (HCC) ERYTHROCYTE SEDIMENTATION RATE Routine 04/10/2025 8:37 AM CDT Rheumatoid arthritis involving both hands with negative rheumatoid factor (HCC) HEPATITIS C ANTIBODY Routine 08/24/2016 2:05 PM AIRPLANE PATROL PILOT from Last 3 Months or Most Recently Relevant to Health Maintenance Results * (ABNORMAL) CBC with auto differential (04/10/2025 8:37 AM CDT) Pathologist [facility] WBC 9.9 3.8 - 10.8 Thousand/u L [facility] RBC, POC 5.30 4.20 - 5.80 Million/uL [facility] Hgb 16.5 13.2 - 17.1 g/dL [facility] Hct 50.9(H) 38.5 - 50.0 % [facility] MCV 96.0 80.0 - 100.0 fL [facility] MCH 31.1 27.0 - 33.0 pg [facility] MCHC 32.4 32.0 - 36.0 g/dL [facility] Comment: For adults, a slight decrease in the calculated MCHC value (in the range of 30 to 32 g/dL) is most likely not clinically significant; however, it should be interpreted with caution in correlation with other red cell parameters and the patient's clinical condition. Rdw 13.2 11.0 - 15.0 % [facility] Platelets 244 140 - 400 Thousand/u L [facility] MPV 11.3 7.5 - 12.5 fL [facility] Neutrophils, abs 7,326 1,500 - 7,800 cells/uL [facility] Lymphocytes, abs 1,574 850 - 3,900 cells/uL [facility] Monocyte abs 832 200 - 950 cells/uL [facility] Eosinophils, abs 129 15 - 500 cells/uL [facility] Basophils, abs 40 0 - 200 cells/uL [facility] Neutrophils 74 % [facility] Lymphocyte pct 15.9 % [facility] Monocytes 8.4 % [facility] Eosinophils 1.3 % [facility] Basophils 0.4 % [facility] Blood 04/10/2025 8:37 AM CDT 04/10/2025 8:38 AM CDT John CHOWDHURY LAB BLOOD ORDERABLES nal Result [facility] [address] [place] [address] * Vitamin D 25 hydroxy (04/10/2025 8:37 AM CDT) Pathologist [facility] Vitamin D 25-OH 92 30 - 100 ng/mL [facility] Comment: Vitamin D Status 25-OH Vitamin D: Deficiency: <20 ng/mL Insufficiency: 20 - 29 ng/mL Optimal: > or = 30 ng/mL For 25-OH Vitamin D testing on patients on D2-supplementation and patients for whom quantitation of D2 and D3 fractions is required, the [facility](TM) 25-OH VIT D, (D2,D3), LC/MS/MS is recommended: order code [id number] (patients >2yrs). See Note 1 Note 1 For additional information, please refer to http://education.1bib/faq/YCR116 (This link is being provided for informational/ educational purposes only.) 04/10/2025 8:37 AM CDT 04/10/2025 8:38 AM CDT John CHOWDHURY LAB BLOOD ORDERABLES Fi nal Result Performing Organization Address [facility] de Phone Number [facility] [address] [place] [address] * Erythrocyte sedimentation rate (04/10/2025 8:37 AM CDT) Erythrocyte sedimentation rate 2 < OR = 20 mm/h [facility] Blood 04/10/2025 8:37 AM CDT 04/10/2025 8:38 AM CDT John CHOWDHURY LAB BLOOD ORDERABLES Fi nal Result Performing Organization Address [facility] Phone Number [facility] [address] [place] [address] * CRP (acute phase) (04/10/2025 8:37 AM CDT) C-RP <3.0 <8.0 mg/L [facility] Blood 04/10/2025 8:37 AM CDT 04/10/2025 8:38 AM CDT John CHOWDHURY LAB BLOOD ORDERABLES Fi nal Result Performing Organization Address [facility] Phone Number [facility] [address] [place] [address] * (ABNORMAL) Hemoglobin A1c (04/10/2025 8:37 AM CDT) Hgb A1C 6.8(H) <5.7 % of total Hgb [facility] Comment: For someone without known diabetes, a hemoglobin A1c value of 6.5% or greater indicates that they may have diabetes and this should be confirmed with a follow-up test. For someone with known diabetes, a value <7% indicates that their diabetes is well controlled and a value greater than or equal to 7% indicates suboptimal control. A1c targets should be individualized based on duration of diabetes, age, comorbid conditions, and other considerations. Currently, no consensus exists regarding use of hemoglobin A1c for diagnosis of diabetes for children. 04/10/2025 8:37 AM CDT 04/10/2025 8:38 AM CDT us John CHOWDHURY LAB BLOOD ORDERABLES nal Result [email or web address] [address] [place] [address] * (ABNORMAL) Comprehensive metabolic panel (04/10/2025 8:37 AM CDT) Glucose 102(H) 65 - 99 mg/dL [facility] Comment: Fasting reference interval For someone without known diabetes, a glucose value between 100 and 125 mg/dL is consistent with prediabetes and should be confirmed with a follow-up test. BUN 14 7 - 25 mg/dL [facility] Creatinine 0.78 0.70 - 1.35 mg/dL [facility] eGFR 98 > OR = 60 mL/min/1.7 3m2 [facility] BUN/creat ratio SEE NOTE: 6 - 22 (calc) [facility] Comment: Not Reported: BUN and Creatinine are within reference range. Sodium 137 135 - 146 mmol/L [facility] Potassium, pl 4.2 3.5 - 5.3 mmol/L [facility] Chloride 102 98 - 110 mmol/L [facility] CO2 27 20 - 32 mmol/L [facility] Calcium 9.8 8.6 - 10.3 mg/dL [facility] Protein, sr 6.1 6.1 - 8.1 g/dL [facility] Albumin 4.4 3.6 - 5.1 g/dL [facility] GLOBULIN 1.7(L) 1.9 - 3.7 g/dL (calc) [facility] Alb/glob ratio 2.6(H) 1.0 - 2.5 (calc) [facility] Bilirubin, total 0.6 0.2 - 1.2 mg/dL [facility] Alk phos 57 35 - 144 U/L [facility] AST 13 10 - 35 U/L [facility] ALT (SGPT) 21 9 - 46 U/L [facility] Blood 04/10/2025 8:37 AM CDT 04/10/2025 8:38 AM CDT us John CHOWDHURY LAB BLOOD ORDERABLES Fi nal Result Performing Organization Address City/[facility]/ZIP Co de Phone Number [email or web address] [address] [place] [address] * Hepatitis C antibody (08/24/2016 2:05 PM AIRPLANE PATROL PILOT) SIGNAL TO CUT-OFF 0.01 <1.00 [facility] HISTORICAL RESULTS Comment: Test performed at [facility] [address] [place] [address] Director: LAURENT BRUNNER DO,MPH Hep C Ab NON-REACT DARRYL NON-REACT DARRYL [facility] HISTORICAL RESULTS 08/24/2016 2:05 [address] AIRPLANE PATROL PILOT us Keli CHOWDHURY LAB MICROBIOLOGY - GENERAL ORDERABLES Final Result Performing Organization Address City/[facility] Co de Phone Number [facility] HISTORICAL RESULTS from Last 3 Months or Most Recently Relevant to Health Maintenance Insurance [facility] Care Teams [employer] Relationship Specialty Start [place] [id number] [place] [address] PCP - General 12/21/16 Ciara Quinones MD [address] [place] [address] Referring Physician Dermatology 02/26/20 Jesus Ernst MD [address] [place] [address] Consulting Physician Rheumatology 08/02/23
--- OUTSIDE RECORDS SUMMARY | 2025-05-26 13:45 | XMS_ITS | Clinical Summary ---
Author Organization [facility] Authorly Address [address] [place] [address] Care Team Providers Care Rib Matcher And Fitter Name Role Phone Nolberto Allen MD, Dada Grajeda Primary Care Provid er Source Comments [facility] Author[facility],non-owned Affiliates and Associated Physician Practices is amultiple site organization consisting of ambulatory clinics and hospital sitesin [place], [place], [place] and [place]. This disclosure is being madepursuant to the Care Everywhere program and may not contain all information available regarding this patient. Last updated 18.[facility] Allergies Active Allergy Reactions Criticality Noted Date Comments Clonazepam 09/06/2016 Sulfasalazine 06/01/2015 Medications * Be aware that medications may not be up to date on this document. Alwaysverify current medications with the patient. naproxen sodium (ALEVE) 220 MG tablet Take 220 mg by mouth 2 times daily Active lisinopril (PRINIVIL; ZESTRIL) 20 MG tablet Take 20 mg by mouth once daily 1 6 Active gabapentin (NEURONTIN) 300 MG capsule 1 at bedtime for one week; then 2 at bedtime for one week; then 1 in the morning and 2 at bedtime thereafter. 90 Cap 5 6 Active adalimumab (HUMIRA PEN) 40 MG/0.8ML injection Inject 0.8 mL subcutaneously every 14 days 6 Pen 3 6 Active LUZU 1 % cream JESUS ONCE D FOR 1 YEAR 0 6 Active predniSONE (DELTASONE) 5 MG tablet TAKE ONE TABLET BY MOUTH ONCE DAILY IF HAVING FLARE UP MAY TAKE TWO TABLETS 60 Tab 6 6 Active meloxicam (MOBIC) 15 MG tablet TAKE 1 TABLET BY MOUTH ONCE DAILY FOR INFLAMMATION. 30 Tab 3 7 Active Active Problems Problem Noted Date Diagnosed Date Rheumatoid arthritis with negative rheumatoid fa ctor 06/01/2015 Overview (07/31/2015): Medication monitoring encounter 06/01/2015 Degeneration of lumbar or lumbosacral interverte bral disc 06/01/2015 Cervical spondylosis 06/01/2015 Social History Tobacco Use Types Packs/Day Years Used Date Smoking Tobacco: Every Day Smokeless Tobacco: Never Tobacco Cessation:Ready to Q uit: No; Counseling Given: Yes Alcohol Use Standard Drinks/Week Comments No 0 (1 standard drink = 0.6 oz pur e alcohol) Sex and Gender Information Value Date Recorded Sex Assigned at Not on file Legal Sex Male 6:15 AM [employer] Gender Identity Not on file Sexual Orientation Not on file Last Filed Vital Signs Vital Sign Reading Time Taken Comments Blood Pressure 112/55 09/06/2016 4:20 PM [employer] Pulse 59 09/06/2016 4:20 PM [employer] Temperature - - Respiratory Rate - - Oxygen Saturation 96% 09/06/2016 4:20 PM [employer] Inhaled Oxygen Concentration - - Weight 110.6 kg (243 lb 12.8 oz) 09/06/2016 4:20 PM [employer] Height 185.4 cm (6' 1) 09/06/2016 4:20 PM [employer] Body Mass Index 32.17 09/06/2016 4:20 PM [employer] TE[employer]ER Plan of Treatment Health Maintenance Due Date Last Done Comments COLOGUARD (AGES 45-75) - COL ON CA SCREENING 1957 COLON MONITORING 1957 COLONOSCOPY - COLON CA SCREENING 1957 CT COLONOGRAPHY - COLON CA SCREENING 1957 Colorectal Cancer Screening 1957 FIT - COLON CA SCREENING 1957 FLEX SIG - COLON CA SCREENING 1957 LIPID TESTING 1957 HEPATITIS C SCREENING 12/22/1975 DTAP/TDAP/TD VACCINES (1 - Tdap) 1976 PNEUMOCOCCAL VACCINE 50+ (1 of 1 - PCV) 12/27/2007 ZOSTER VACCINE (1 of 2) 12/27/2007 AAA SCREENING 2022 COVID-19 VACCINE (1 - 2024-2 5 season) 2024 DEPRESSION SCREENING 09/23/2024 INFLUENZA VACCINE (#1) 2025 Respiratory Syncytial Virus (RSV) Vaccine Pt: or over 60 yrs (1 - 1-dose 75+ series) 2032 HEPATITIS B VACCINE Aged Out No longe r eligible based on patient's age to complete this topic HIB VACCINE Aged Out No longer eligi ble based on patient's age to complete this topic HPV VACCINE Aged Out No longer eligi ble based on patient's age to complete this topic MENINGOCOCCAL (Group B) VACC INE SHARED DECISION-MAKING Aged Out No longer eligibl e based on patient's age to complete this topic MENINGOCOCCAL GROUPS A/C/Y/W VACCINE Aged Out No longer eligible b ased on patient's age to complete this topic Insurance [employer] Care Teams Rib Matcher And Fitter Relationship Specialty Start Date End Date Dada Arvizu Jr., MD PCP - General Family Medicine 06/01/15
== END 2025-05-26 12:33 | disposition home or self-care (01) ==
PROVIDERS: PCP Physician Assistant; Visit Provider Physician Assistant
DX: G57.93 Unspecified mononeuropathy of bilateral lower limbs (principal)
CPT/HCPCS: 95886; 95910